=== PATIENT | male | born 1975 | race Caucasian/White ===

== ENCOUNTER → 2018-02-17 | Outpatient (CLI) | payer OTHER ==
--- NOTE | 2018-02-17 08:00 | US ---
EXAMINATION TYPE: US liver DATE OF EXAM: 02/17/2018 COMPARISON: NONE CLINICAL HISTORY: R74.8 ABN LEVELS OF OTHER SERUM ENZYMES. Elevated liver enzymes. EXAM MEASUREMENTS: Liver Length: 13.6 cm Gallbladder Wall: 0.2 cm CBD: 0.3 cm Right Kidney: 9.8 x 5.6 x 4.9 cm Severe midline bowel gas obscuring organs, technically difficult and somewhat limited study. Pancreas: Obscured by bowel gas Liver: limited visualization, portions visualized wnl Gallbladder: wnl Evidence for sonographic Worley's sign: No CBD: limited visualization, portions visualized wnl Right Kidney: No hydronephrosis or masses seen on images saved. Suboptimal study due to overlying bowel gas. Visualized portions of liver show no worrisome intrahepa tic mass or intrahepatic ductal dilatation. IMPRESSION: Suboptimal study, visualized portion of liver shows no worrisome intrahepatic mass or int rahepatic ductal dilatation.
== END | disposition home or self-care (01) ==
LOC: RADUSWWP 07:19
PROVIDERS: ATTEND Family Medicine
DX: R74.8 Abnormal levels of other serum enzymes (principal)
CPT/HCPCS: 76705

== ENCOUNTER → 2018-10-14 | Outpatient (CLI) | payer OTHER ==
--- NOTE | 2018-10-14 16:13 | CT ---
EXAMINATION TYPE: CT abdomen wo/w con DATE OF EXAM: 10/14/2018 COMPARISON: Liver ultrasound dated 02/17/2018 HISTORY: Right upper quadrant abdominal pain and abnormal liver enzyme labs. CT DLP: 1229 mGycm Automated exposure control for dose reduction was used. TECHNIQUE: Helical acquisition of images was performed from the lung bases through the top of iliac crest to include entire abdomen. CONTRAST: Performed with Oral Contrast and without and with IV Contrast, patient injected with 100ml mL of Isov ue M300. FINDINGS: LUNG BASES: No significant abnormality is appreciated. LIVER/GB: The liver slightly hypoattenuated on the noncontrast imaging, however attenuation does not meet criteria for hepatic steatosis and no evidence of hepatic steatosis in comparison to enhancement of the spleen is seen. Gallbladder is elongated without cholelithiasis. There is no focal hepatic ma ss or intrahepatic biliary ductal dilatation identified. There is a very small area of focal hypoatte nuation along the fissure for the falciform ligament on series 6 image 14 suggestive of focal fatty i nfiltration. PANCREAS: No significant abnormality is seen. SPLEEN: There are innumerable hypoattenuated splenic lesions throughout the entirety of the spleen th e largest measuring 2.5 cm not compatible with simple cysts or simple lymphangiomas or hemangiomas. T hese are seen on the portal venous phase only and do not persist on delayed imaging. No splenomegaly is present. ADRENALS: No significant abnormality is seen. KIDNEYS: Kidneys enhance and excrete symmetrically without hydronephrosis. BOWEL: No significant abnormality is seen. LYMPH NODES: No significant abnormality is seen. OSSEOUS STRUCTURES: Limbus vertebrae is incidentally seen, normal variant, of L4. Mild degenerative changes of the thoracic spine are noted.. FREE AIR: No free air is visualized. IMPRESSION: 1. NO HEPATIC ABNORMALITY TO CORRESPOND TO THE PATIENT'S ABNORMAL LIVER FUNCTION TESTS OTHER THAN SMA LL FOCUS OF FOCAL FATTY INFILTRATION. 2. INNUMERABLE HYPOATTENUATED SPLENIC LESIONS THAT CAN BE SEEN IN ATYPICAL INFECTIONS, GRANULOMATOUS DISEASE, METASTASIS, OR LYMPHOPROLIFERATIVE DISORDERS.
== END | disposition home or self-care (01) ==
LOC: RADCTMAIN 14:39
PROVIDERS: ATTEND Family Medicine
DX: D73.89 Other diseases of spleen (principal)
CPT/HCPCS: 74170; Q9967

== ENCOUNTER 2021-03-19 12:52 | Inpatient (IN) | payer OTHER ==
[2021-03-19] MEDS ORDERED: SODIUM CHLORIDE 0.9% 1,000 ML IV ONE (14:09)
[2021-03-19] MEDS ORDERED: SODIUM CHLORIDE 0.9% 500 ML 500 ML IV ONE (14:09)
[2021-03-19] MEDS ORDERED: DEXAMETHASONE SOD PHOSPHATE 10 MG/ML 1 ML VIAL IV STA (14:10)
[2021-03-19] MEDS: SODIUM CHLORIDE 0.9% 1,000 ML IV SCH (14:33)
--- NOTE | 2021-03-19 14:42 | ED ---
General Adult HPI - General Chief complaint: Shortness of Breath Stated complaint: covid+/increased SOB Time Seen by Provider: 03/19/21 14:04 Source: patient Mode of arrival: ambulatory Limitations: no limitations - History of Present Illness Initial comments: 45-year-old male presenting today for chief complaint of persistent shortness of breath. Patient states he was diagnosed with coma on 02/28/2021 he states that he continues to have shortness of breath he states has not changed or worsened he states it is just persistent ache and a longer tolerate it. Denies any leg swelling, hemoptysis he denies pain or deep inspiration he denies any chest pain. Patient denies nausea vomiting jaw or arm pain. He states that he has gotten over the fever nausea diarrhea aspect of the illness he states he still has a slight cough occasionally. He states the only thing that truly has remained has been the shortness of breath patient denies any abdominal pain. Patient on arrival appears tachypneic and is only saturating around 88-89% on RA with good wave form. - Related Data Home Medications Medication Instructions Recorded Confirmed Brimonidine Tartrate [Alphagan P 1 drops RIGHT EYE BID 03/19/21 03/19/21 0.15% Ophth Soln] Latanoprost [Xalatan 0.005%] 1 drop RIGHT EYE HS 03/19/21 03/19/21 Lisinopril-Hctz 20-12.5 mg 1 tab PO DAILY 03/19/21 03/19/21 [Zestoretic 20-12.5] Montelukast [Singulair] 10 mg PO DAILY 03/19/21 03/19/21 RX: Dorzolamide-Timol 2.23%/0.68% 1 drop RIGHT EYE BID 03/19/21 03/19/21 [Cosopt] Vortioxetine Hydrobromide 10 mg PO DAILY 03/19/21 03/19/21 [Trintellix] Allergies Allergy/AdvReac Type Severity Reaction Status Date / Time No Known Allergies Allergy Verified 03/19/21 15:49 Review of Systems ROS Statement: Those systems with pertinent positive or pertinent negative responses have been documented in the HPI. ROS Other: All systems not noted in ROS Statement are negative. Past Medical History Past Medical History: Hypertension History of Any Multi-Drug Resistant Organisms: None Reported Past Surgical History: Adenoidectomy, Tonsillectomy Past Psychological History: Depression Smoking Status: Never smoker Past Alcohol Use History: None Reported Past Drug Use History: None Reported General Exam - General Exam Comments Initial Comments: General: The patient is awake and alert, in no distress Eye: +3 mm pupils are equal, round and reactive to light, extra-ocular movements are intact. No nystagmus. There is normal conjunctiva bilaterally. No signs of icterus. Ears, nose, mouth and throat: There are moist mucous membranes and no oral lesions. Neck: The neck is supple, there is no tenderness or JVD. Cardiovascular: There is a regular rate and rhythm. No murmur, rub or gallop is appreciated. Respiratory: Respirations are non-labored, breath sounds are equal. No wheezes, stridor. Rales and some scattered rhonchi. Gastrointestinal: Soft, non-distended, non-tender abdomen without masses or organomegaly noted. There is no rebound or guarding present. Musculoskeletal: Normal ROM, no tenderness. Strength 5/5. Sensation intact. Radial pulses equal bilaterally 2+. Neurological: A&O x 3. CN II-XII intact grossly, There are no obvious motor or sensory deficits. Coordination appears grossly intact. Speech is normal. Skin: Skin is warm and dry and no rashes or lesions are noted. No calf pain or LE swelling Psychiatric: Cooperative, appropriate mood & affect, normal judgment. Limitations: no limitations Course Vital Signs 03/19/21 03/19/21 03/19/21 13:24 15:52 17:31 Temperature 98.0 F 98.3 F Pulse Rate 130 H 99 103 H Respiratory 22 20 18 Rate Blood Pressure 115/80 121/77 121/77 O2 Sat by Pulse 91 L 100 95 Oximetry Medical Decision Making - Medical Decision Making Labs stable. CT probable subsegmental PE. Initiated on heparin. Covid PNA. Patient hypoxic she was tachycardic upon arrival. Troponin negative. Pt will be admitted for monitoring, anticoagulation, supplemental oxygen. steroids initiated in the ER. Dr Valera agreeable to care plan. critical care time of 30 minutes was spent with patient, re-evaluation, consultations, interpretations/diagnosis. Ventricular rate 126 bpm, RI interval 128 ms, QR nondenominational 80 ms, QT/QTC 328/475 ms. Sinus tachycardia with a right axis. No ST elevation or depression as well as significant artifact - Lab Data Result diagrams: 03/19/21 14:29 03/19/21 14:29 Lab Results 03/19/21 03/19/21 03/19/21 Range/Units 14:29 14:29 14:29 WBC 7.1 (3.8-10.6) k/uL RBC 4.87 (4.30-5.90) m/uL Hgb 14.9 (13.0-17.5) gm/dL Hct 44.0 (39.0-53.0) % MCV 90.5 (80.0-100.0) fL MCH 30.7 (25.0-35.0) pg MCHC 33.9 (31.0-37.0) g/dL RDW 13.9 (11.5-15.5) % Plt Count 406 (150-450) k/uL MPV 6.9 Neutrophils % 83 % Lymphocytes % 9 % Monocytes % 5 % Eosinophils % 1 % Basophils % 1 % Neutrophils # 5.9 (1.3-7.7) k/uL Lymphocytes # 0.6 L (1.0-4.8) k/uL Monocytes # 0.4 (0-1.0) k/uL Eosinophils # 0.1 (0-0.7) k/uL Basophils # 0.0 (0-0.2) k/uL PT 11.5 (9.0-12.0) sec INR 1.1 (<1.2) APTT 23.8 (22.0-30.0) sec D-Dimer 1.61 H (<0.60) mg/L FEU Sodium 142 (137-145) mmol/L Potassium 3.9 (3.5-5.1) mmol/L Chloride 110 H (98-107) mmol/L Carbon Dioxide 22 (22-30) mmol/L Anion Gap 10 mmol/L BUN 22 H (9-20) mg/dL Creatinine 0.93 (0.66-1.25) mg/dL Est GFR (CKD-EPI)AfAm >90 (>60 ml/min/1.73 sqM) Est GFR (CKD-EPI)NonAf >90 (>60 ml/min/1.73 sqM) Glucose 108 H (74-99) mg/dL Plasma Lactic Acid Roberth (0.7-2.0) mmol/L Calcium 9.0 (8.4-10.2) mg/dL Magnesium 2.2 (1.6-2.3) mg/dL Total Bilirubin 0.5 (0.2-1.3) mg/dL AST 52 (17-59) U/L ALT 117 H (4-49) U/L Alkaline Phosphatase 91 (38-126) U/L Lactate Dehydrogenase 802 H (313-618) U/L Troponin I (0.000-0.034) ng/mL C-Reactive Protein 1.1 H (<1.0) mg/dL NT-Pro-B Natriuret Pep pg/mL Total Protein 6.9 (6.3-8.2) g/dL Albumin 3.5 (3.5-5.0) g/dL 03/19/21 03/19/21 03/19/21 Range/Units 14:29 14:29 14:29 WBC (3.8-10.6) k/uL RBC (4.30-5.90) m/uL Hgb (13.0-17.5) gm/dL Hct (39.0-53.0) % MCV (80.0-100.0) fL MCH (25.0-35.0) pg MCHC (31.0-37.0) g/dL RDW (11.5-15.5) % Plt Count (150-450) k/uL MPV Neutrophils % % Lymphocytes % % Monocytes % % Eosinophils % % Basophils % % Neutrophils # (1.3-7.7) k/uL Lymphocytes # (1.0-4.8) k/uL Monocytes # (0-1.0) k/uL Eosinophils # (0-0.7) k/uL Basophils # (0-0.2) k/uL PT (9.0-12.0) sec INR (<1.2) APTT (22.0-30.0) sec D-Dimer (<0.60) mg/L FEU Sodium (137-145) mmol/L Potassium (3.5-5.1) mmol/L Chloride (98-107) mmol/L Carbon Dioxide (22-30) mmol/L Anion Gap mmol/L BUN (9-20) mg/dL Creatinine (0.66-1.25) mg/dL Est GFR (CKD-EPI)AfAm (>60 ml/min/1.73 sqM) Est GFR (CKD-EPI)NonAf (>60 ml/min/1.73 sqM) Glucose (74-99) mg/dL Plasma Lactic Acid Roberth 1.1 (0.7-2.0) mmol/L Calcium (8.4-10.2) mg/dL Magnesium (1.6-2.3) mg/dL Total Bilirubin (0.2-1.3) mg/dL AST (17-59) U/L ALT (4-49) U/L Alkaline Phosphatase (38-126) U/L Lactate Dehydrogenase (313-618) U/L Troponin I <0.012 (0.000-0.034) ng/mL C-Reactive Protein (<1.0) mg/dL NT-Pro-B Natriuret Pep 45 pg/mL Total Protein (6.3-8.2) g/dL Albumin (3.5-5.0) g/dL Disposition Clinical Impression: Pulmonary embolism, Pneumonia due to COVID-19 virus, Dyspnea, Hypoxia Disposition: ADMITTED IP TO THIS [facility] Condition: Stable Is patient prescribed a controlled substance at d/c from ED?: No Time of Disposition: 16:35 Decision to Admit Reason: Admit from EC Decision Date: 03/19/21 Decision Time: 16:35
[2021-03-19 14:53] LABS: Basophils % (A) 1 %; Eosinophils # (A) 0.1 k/uL (0-0.7); Eosinophils % (A) 1 %; HGB 14.9 gm/dL (13.0-17.5); Lymphocytes # (A) 0.6 k/uL (1.0-4.8); Lymphocytes % (A) 9 %; MCH 30.7 pg (25.0-35.0); MCHC 33.9 g/dL (31.0-37.0); MCV 90.5 fL (80.0-100.0); Mean Platelet Volume 6.9; Monocytes # (A) 0.4 k/uL (0-1.0); Monocytes % (A) 5 %; Neutrophils # (A) 5.9 k/uL (1.3-7.7); Neutrophils % (A) 83 %; Platelet Count 406 k/uL (150-450); RBC 4.87 m/uL (4.30-5.90); RDW 13.9 % (11.5-15.5); WBC 7.1 k/uL (3.8-10.6)
--- NOTE | 2021-03-19 14:57 | XR ---
EXAMINATION TYPE: XR chest 1V portable DATE OF EXAM: 03/19/2021 COMPARISON: NONE HISTORY: Shortness of breath. COVID positive. TECHNIQUE: Single AP portable frontal upright view of the chest is obtained. FINDINGS: There is low lung volumes with increased multifocal and confluent reticular opacities in t he mid to lower lungs left greater than right. The cardiac silhouette size is upper limits of normal . The osseous structures are intact. EKG leads. IMPRESSION: Low lung volumes with left greater than right multifocal and confluent increased reticul ar opacities bilaterally consistent with history of covid-19 infection..
[2021-03-19 15:03] LABS: ALT 117 U/L (4-49); AST 52 U/L (17-59); African American GFR (CKD) >90 (>60 ml/min/1.73 sqM); Albumin 3.5 g/dL (3.5-5.0); Alkaline Phosphatase 91 U/L (38-126); Anion Gap 10 mmol/L; Blood Urea Nitrogen 22 mg/dL (9-20); C Reactive Protein 1.1 mg/dL (<1.0); Carbon Dioxide 22 mmol/L (22-30); Chloride 110 mmol/L (98-107); Glucose 108 mg/dL (74-99); LDH 802 U/L (313-618); Magnesium 2.2 mg/dL (1.6-2.3); Non-African American GFR(CKD) >90 (>60 ml/min/1.73 sqM); Potassium 3.9 mmol/L (3.5-5.1); Sodium 142 mmol/L (137-145); Total Bilirubin 0.5 mg/dL (0.2-1.3); Total Protein 6.9 g/dL (6.3-8.2)
[2021-03-19 15:04] LABS: INR 1.1 (<1.2); Partial Thromboplastin Time 23.8 sec (22.0-30.0); Prothrombin Time 11.5 sec (9.0-12.0)
[2021-03-19 15:12] LABS: D-Dimer 1.61 mg/L FEU (<0.60)
--- NOTE | 2021-03-19 16:17 | CT ---
EXAMINATION TYPE: CT chest angio for PE DATE OF EXAM: 03/19/2021 COMPARISON: Chest x-ray earlier today. HISTORY: dyspnea, covid CT DLP: 408.2 mGycm Automated exposure control for dose reduction was used. CONTRAST: CT Chest for pulmonary embolism performed with with IV Contrast, patient injected with 100 mL of Isov ue 370. FINDINGS: LUNGS: Corresponding to x-ray there is low lung volumes with multifocal and confluent areas of ground glass opacity seen bilaterally more prominent in the mid to lower lungs. Patient unable to hold breat h making evaluation suboptimal. Multifocal areas of reticulation bilaterally are present greatest in the lower lungs. No pleural effusion or pneumothorax seen bilaterally. MEDIASTINUM: There is satisfactory enhancement of the aorta without aneurysm or dissection. Bovine ty pe arch is seen which is normal variant. There is also satisfactory enhancement of the pulmonary stuart ry and its branches without CT evidence for clinically significant central acute pulmonary embolism. possible partially occlusive subsegmental embolism right lower lobe axial image 76 in smaller branch vessel. There are prominent right hilar lymph node. No pericardial effusion is seen. Heart size n ormal. No suspicious right ventricular dilatation. OTHER: Small degree of flame shaped subareolar gynecomastia. IMPRESSION: 1. Suboptimal study, no central or clinically significant pulmonary embolism. Suggestion of partial o cclusive small subsegmental acute embolism right lower lobe. 2. Low lung volumes and Bilateral multifocal and confluent groundglass and reticular opacities greate st in the lower lungs consistent with covid-19 infection.
[2021-03-19] MEDS ORDERED: NALOXONE 0.4 MG/ML 1 ML VIAL IV PRN (16:32)
[2021-03-19] MEDS ORDERED: ACETAMINOPHEN TAB 325 MG TAB PO PRN (16:32)
[2021-03-19] MEDS ORDERED: HEPARIN SODIUM 1,000 UN/ML (10ML VL) IV ONE (16:35)
[2021-03-19] MEDS ORDERED: HEPARIN SODIUM 1,000 UN/ML (10ML VL) IV PRN (16:35)
[2021-03-19] MEDS: HEPARIN SOD,PORK IN 0.45% NACL 25,000 UNIT in 0.45% NACL 1 250ML.BAG IV SCH (17:41)
[2021-03-19 19:39] LABS: Ferritin 675.8 ng/mL (22.0-322.0)
[2021-03-19] MEDS: ALBUTEROL HFA INHALER INHALATION SCH (20:41)
[2021-03-20] MEDS: SODIUM CHLORIDE 0.9% 1,000 ML IV SCH (05:04)
[2021-03-20] MEDS: ALBUTEROL HFA INHALER INHALATION SCH ×4 (07:26→20:38)
[2021-03-20] MEDS: HEPARIN SOD,PORK IN 0.45% NACL 25,000 UNIT in 0.45% NACL 1 250ML.BAG IV SCH (08:10)
[2021-03-20] MEDS: LISINOPRIL-HCTZ 20-12.5 MG 1 EACH TAB PO SCH (09:31)
[2021-03-20] MEDS: VORTIOXETINE HYDROBROMIDE 10 MG TABLET PO SCH (09:32)
[2021-03-20] MEDS: MONTELUKAST 10 MG TAB PO SCH (09:33)
[2021-03-20] MEDS: DORZOLAMIDE-TIMOLOL 2.23%/0.68 10ML BTL RIGHT EYE SCH ×2 (09:33→20:48)
[2021-03-20] MEDS: BRIMONIDINE TARTRATE 0.2% DROPS 5 ML BTL RIGHT EYE SCH ×2 (09:33→20:48)
[2021-03-20 10:51] LABS: Basophils # (A) 0.01 X 10*3/uL (0.00-0.10); Basophils % (A) 0.2 %; Eosinophils # (A) 0.02 X 10*3/uL (0.04-0.35); Eosinophils % (A) 0.3 %; HCT 37.1 % (39.6-50.0); HGB 11.5 g/dL (13.0-17.0); Lymphocytes # (A) 0.79 X 10*3/uL (0.90-5.00); Lymphocytes % (A) 13.2 %; MCH 29.6 pg (27.0-32.0); MCV 95.4 fL (80.0-97.0); Mean Platelet Volume 10.2 fL (9.5-12.2); Monocytes # (A) 0.29 X 10*3/uL (0.20-1.00); Monocytes % (A) 4.8 %; Neutrophils # (A) 4.86 X 10*3/uL (1.80-7.70); Neutrophils % (A) 81.2 %; Platelet Count 300 X 10*3/uL (140-440); RBC 3.89 X 10*6/uL (4.40-5.60); RDW 14.6 % (11.5-14.5); WBC 5.99 X 10*3/uL (4.50-10.00)
[2021-03-20] MEDS: DEXAMETHASONE SOD PHOSPHATE 10 MG/ML 1 ML VIAL IV SCH (13:56)
[2021-03-20] MEDS: ZINC SULFATE 220 MG CAP PO SCH (13:57)
[2021-03-20] MEDS: FAMOTIDINE 20 MG TAB PO SCH ×2 (13:57→20:48)
[2021-03-20] MEDS: ASCORBIC ACID 500 MG TAB PO SCH (13:57)
[2021-03-20] MEDS: APIXABAN 5 MG TAB PO SCH ×2 (13:57→20:48)
[2021-03-20] MEDS: CHOLECALCIFEROL 25 MCG (1000 IU) TABLET PO SCH (13:57)
[2021-03-20 15:01] LABS: C Reactive Protein 0.9 mg/dL (<1.0)
--- NOTE | 2021-03-20 15:23 | P.CNPUL ---
History of Present Illness Consult date: 03/20/21 Requesting physician: Warren Valera Reason for consult: dyspnea, hypoxemia, pneumonia, abnormal CXR/CT Chief complaint: Shortness of breath History of present illness: This is a 45-year-old white male patient who was diagnosed with COVID-19 on 02/28/2021 when he was seen at [facility] emergency department. We don't have the records from that visit, but patient states he was just given IV fluids in the emergency department, and an inhaler, and was discharged home, he does not think there was pneumonia on the chest x-ray found on that visit. Patient presented to the emergency department on 03/19/2021 with persistent shortness of breath, which she states has not changed over worsened however has not improved. He denied any chest pain or hemoptysis, no leg s welling, no calf tenderness. He denied any nausea or vomiting, he did have diarrhea, he does have a slight cough occasionally. Not usually oxygen dependent at baseline, in the emergency department she was tachypneic and saturating at 88-89% on room air. Chest x-ray showed low lung volumes with left greater than right multifocal and confluent increased reticular opacities bilaterally consistent with history of COVID-19 pneumonia. His labs show lymphopenia, normal white count of 7.1, hemoglobin was 14.1, his d-dimer was elevated at 1.61, his electrolytes and renal profile were unremarkable, plasma lactic acid was 1.1, ferritin level was 675, ALT was 117, LDH was 802, troponin was less than 0.012, CRP was 1.1, pro calcitonin level was negative at 0.12, CTA chest was completed and this was a suboptimal study but no central or clinically significant pulmonary embolism was noted, there was a suggestion of partially occlusive small subsegmental acute embolism in the right lower lobe. There were corresponding to x-ray low lung volumes with multifocal and confluent areas of groundglass opacities. Patient was started on heparin infusion, and Decadron. Review of Systems All systems: negative Constitutional: Denies chills, Denies fever Eyes: denies blurred vision, denies pain Ears, nose, mouth and throat: Denies headache, Denies sore throat Cardiovascular: Denies chest pain, Denies shortness of breath Respiratory: Reports dyspnea, Denies cough Gastrointestinal: Denies abdominal pain, Denies diarrhea, Denies nausea, Denies vomiting Musculoskeletal: Denies myalgias Integumentary: Denies pruritus, Denies rash Neurological: Denies numbness, Denies weakness Psychiatric: Denies anxiety, Denies depression Endocrine: Denies fatigue, Denies weight change Past Medical History Past Medical History: Hypertension History of Any Multi-Drug Resistant Organisms: None Reported Past Surgical History: Adenoidectomy, Tonsillectomy Past Psychological History: Depression Smoking Status: Never smoker Past Alcohol Use History: None Reported Past Drug Use History: None Reported Medications and Allergies Home Medications Medication Instructions Recorded Confirmed Type Brimonidine Tartrate [Alphagan P 1 drops RIGHT EYE BID 03/19/21 03/19/21 History 0.15% Ophth Soln] Dorzolamide-Timol 2.23%/0.68% 1 drop RIGHT EYE BID 03/19/21 03/19/21 History [Cosopt] Latanoprost [Xalatan 0.005%] 1 drop RIGHT EYE HS 03/19/21 03/19/21 History Lisinopril-Hctz 20-12.5 mg 1 tab PO DAILY 03/19/21 03/19/21 History [Zestoretic 20-12.5] Montelukast [Singulair] 10 mg PO DAILY 03/19/21 03/19/21 History Vortioxetine Hydrobromide 10 mg PO DAILY 03/19/21 03/19/21 History [Trintellix] Apixaban [Eliquis Starter Pack 0 mg PO DIRECTED 30 Days #1 pack 03/20/21 Rx (for VTE)] Allergies Allergy/AdvReac Type Severity Reaction Status Date / Time No Known Allergies Allergy Verified 03/19/21 15:49 Physical Exam Vitals: Vital Signs Temp Pulse Pulse Resp BP BP Pulse Ox 03/20/21 14:09 97.4 F L 81 18 112/75 91 L 03/20/21 08:00 98.2 F 85 16 105/72 95 03/20/21 06:39 91 L 03/20/21 05:49 98.6 F 88 114/74 89 L 03/20/21 01:33 97.8 F 82 19 118/82 91 L 03/19/21 20:57 97.9 F 95 19 120/85 95 03/19/21 20:00 95 20 03/19/21 17:31 98.3 F 103 H 18 121/77 95 03/19/21 15:52 99 20 121/77 100 Intake and Output 03/20/21 03/20/21 03/20/21 06:59 14:59 22:59 Intake Total 122.195 245.587 Balance 122.195 245.587 Intake: Intake, IV Titration 122.195 45.587 Amount Heparin Sod,Pork in 0.45% 122.195 45.587 NaCl 25,000 unit In 0.45 % NaCl 1 250ml.bag @ 18 UNITS/KG/HR 16.329 mls/hr IV .[id number] ORTIZ Rx#: [id number] Oral 200 Other: # Voids 4 2 GENERAL EXAM: Alert, very pleasant, 45-year-old white male, on 4 L of oxygen and pulse ox of 91%, comfortable in no apparent distress. HEAD: Normocephalic/atraumatic. EYES: Normal reaction of pupils, equal size. Conjunctiva pink, sclera white. NOSE: Clear with pink turbinates. THROAT: No erythema or exudates. NECK: No masses, no JVD, no thyroid enlargement, no adenopathy. CHEST: No chest wall deformity. Symmetrical expansion. LUNGS: Equal air entry with diffuse bibasilar crackles CVS: Regular rate and rhythm, normal S1 and S2, no gallops, no murmurs, no rubs ABDOMEN: Soft, nontender. No hepatosplenomegaly, normal bowel sounds, no guarding or rigidity. EXTREMITIES: No clubbing, no edema, no cyanosis, 2+ pulses and upper and lower extremities. MUSCULOSKELETAL: Muscle strength and tone normal. SPINE: No scoliosis or deformity SKIN: No rashes CENTRAL NERVOUS SYSTEM: Alert and oriented -3. No focal deficits, tone is normal in all 4 extremities. PSYCHIATRIC: Alert and oriented -3. Appropriate affect. Intact judgment and insight. Results - Laboratory Findings CBC and BMP: 03/20/21 06:39 03/19/21 14:29 PT/INR, D-dimer PT 11.5 sec (9.0-12.0) 03/19/21 14:29 INR 1.1 (<1.2) 03/19/21 14:29 D-Dimer 1.51 mg/L FEU (<0.60) H 03/20/21 14:00 Abnormal lab findings: Abnormal Labs 03/19/21 03/19/21 03/19/21 14:29 14:29 14:29 RBC Hgb Hct MCHC RDW Lymphocytes # 0.6 L Eosinophils # APTT D-Dimer 1.61 H Chloride 110 H BUN 22 H Glucose 108 H Ferritin 675.8 H ALT 117 H Lactate Dehydrogenase 802 H C-Reactive Protein 1.1 H Procalcitonin 03/19/21 03/20/21 03/20/21 14:29 00:23 06:39 RBC 3.89 L Hgb 11.5 L Hct 37.1 L MCHC 31.0 L RDW 14.6 H Lymphocytes # 0.79 L Eosinophils # 0.02 L APTT 117.2 H* D-Dimer Chloride BUN Glucose Ferritin ALT Lactate Dehydrogenase C-Reactive Protein Procalcitonin 0.12 H 03/20/21 03/20/21 06:39 14:00 RBC Hgb Hct MCHC RDW Lymphocytes # Eosinophils # APTT 36.4 H D-Dimer 1.51 H Chloride BUN Glucose Ferritin ALT Lactate Dehydrogenase C-Reactive Protein Procalcitonin - Diagnostic Findings Chest x-ray: report reviewed, image reviewed CT scan - chest: report reviewed, image reviewed Assessment and Plan Plan: Assessment: #1. Acute hypoxic respiratory failure related to acute COVID-19 pneumonia, first diagnosed on 02/28/2021 at [facility]. Patient is outside the window for Remdesivir #2. Small subsegmental right lower lobe pulmonary embolism #3. History of depression #4. Possible history of chronic bronchial asthma, mild intermittent #5. Lifetime nonsmoker #6. History of hypertension Plan: We'll start the patient on Eliquis 10 mg twice a day Discontinue heparin infusion Continue Decadron Patient is outside the window for Remdesivir We'll continue to monitor for worsening dyspnea or hypoxia I performed a history & physical examination of the patient and discussed their management with my nurse practitioner, Jaz Saeed. I reviewed the nurse practitioner's note and agree with the documented findings and plan of care. Lung sounds are positive for diffuse crackles. The findings and the impression was discussed with the patient. I attest to the documentation by the nurse practitioner. Time with Patient: Greater than 30
[2021-03-20] MEDS: LATANOPROST 0.005% OPHTH DROPS 2.5 ML BTL RIGHT EYE SCH (20:47)
--- NOTE | 2021-03-20 21:14 | P.HPIM ---
History of Present Illness H&P Date: 03/20/21 Chief Complaint: Not feeling well History of presenting complaint: This is a pleasant 45-year-old patient of Dr. Fajardo. Chronic stable medical conditions include hypertension, ALLERGIES, depression. Patient was diagnosed with COVID 19 on February 28. 2 days prior to this patient with having different symptoms. Currently patient presented to the ER with increasing shortness of breath diarrhea. No body ache or headache. Decreased appetite. Patient had some loss of smell and taste that has been coming back. Currently no fever and chills. Initial pulse ox on presentation was 91% on room air. Patient is placed on oxygen. Given IV dexamethasone. Review of systems: GEN.: Tired EYES: None HEENT: None NECK: None RESPIRATORY: Shortness of breath CARDIOVASCULAR: None GASTROINTESTINAL: Intermittent diarrhea GENITOURINARY: None MUSCULOSKELETAL: None LYMPHATICS: None HEMATOLOGICAL: None PSYCHIATRY: None NEUROLOGICAL: None Past medical history to include: Hypertension, ALLERGIES, depression Social history: Patient is in his grandfather. Normally does [employer]. Does not smoke or drink alcohol Family history: Reviewed, noncontributory to presentation Physical examination: VITAL SIGNS: 98, 1:30, 22, 115/80, 91% on room air GENERAL: BMI 30.4, laying in bed, tired with nasal cannula. EYES: Pupils equal. Conjunctiva normal. HEENT: External appearance of nose and ears normal, oral cavity grossly normal. Nasal cannula NECK: JVD not raised; masses not palpable. HEART: First and second heart sounds are normal; no edema. LUNGS: Respiratory rate increased, basal crackles. ABDOMEN: Soft, nontender, liver spleen not palpable, no masses palpable. PSYCH: Alert and oriented x3; mood and affect tired appearingl. NEUROLOGICAL: Cranial nerves grossly intact; no facial asymmetry, power and sensation grossly intact. LYMPHATICS: No lymph nodes palpable in the axilla and neck INVESTIGATIONS, reviewed in the clinical context: WBC 5.9 hemoglobin 11.5 platelets 300 lymphocyte 0.7 d-dimer 1.61 Potassium 3.9 creatinine 0.93 LDH 802 CRP 1.1 pro-calcitonin 0.12 EKG tracing personally reviewed by me-normal sinus rhythm, heart rate 126 Chest CTA: Partial occlusive small subsegmental acute embolism right lower lobe Chest x-ray film personally reviewed by me-bilateral infiltrates Assessment and plan: -Bilateral COVID 19 pneumonia. Patient was diagnosed on February 28. Symptoms is started well before that. IV dexamethasone, vitamin C, vitamin D, Pepcid, zinc. Subcu Lovenox -Related hypoxia with a pulse ox being 91% on room air Supplement 2 L of nasal cannula -Acute gastroenteritis secondary to COVID 19 Symptomatic treatment -Essential hypertension Continue Zestoretic -Chronic ALLERGIES Continue with Singulair -Depression otherwise specified Continue with Trintellix Care was discussed with the patient. Encouraged to sit up in a chair. Use incentive spirometry. Medications as above. Pulmonary consulted. Past Medical History Past Medical History: Hypertension History of Any Multi-Drug Resistant Organisms: None Reported Past Surgical History: Adenoidectomy, Tonsillectomy Past Psychological History: Depression Smoking Status: Never smoker Past Alcohol Use History: None Reported Past Drug Use History: None Reported Medications and Allergies Home Medications Medication Instructions Recorded Confirmed Type Brimonidine Tartrate [Alphagan P 1 drops RIGHT EYE BID 03/19/21 03/19/21 History 0.15% Ophth Soln] Dorzolamide-Timol 2.23%/0.68% 1 drop RIGHT EYE BID 03/19/21 03/19/21 History [Cosopt] Latanoprost [Xalatan 0.005%] 1 drop RIGHT EYE HS 03/19/21 03/19/21 History Lisinopril-Hctz 20-12.5 mg 1 tab PO DAILY 03/19/21 03/19/21 History [Zestoretic 20-12.5] Montelukast [Singulair] 10 mg PO DAILY 03/19/21 03/19/21 History Vortioxetine Hydrobromide 10 mg PO DAILY 03/19/21 03/19/21 History [Trintellix] Apixaban [Eliquis Starter Pack 0 mg PO DIRECTED 30 Days #1 pack 03/20/21 Rx (for VTE)] Allergies Allergy/AdvReac Type Severity Reaction Status Date / Time No Known Allergies Allergy Verified 03/19/21 15:49 Physical Exam Vitals: Vital Signs Temp Pulse Pulse Resp BP BP Pulse Ox 03/20/21 06:39 91 L 03/20/21 05:49 98.6 F 88 114/74 89 L 03/20/21 01:33 97.8 F 82 19 118/82 91 L 03/19/21 20:57 97.9 F 95 19 120/85 95 03/19/21 20:00 95 20 03/19/21 17:31 98.3 F 103 H 18 121/77 95 03/19/21 15:52 99 20 121/77 100 03/19/21 13:24 98.0 F 130 H 22 115/80 91 L Intake and Output 03/19/21 03/20/21 03/20/21 22:59 06:59 14:59 Intake Total 122.195 45.587 Balance 122.195 45.587 Intake: Intake, IV Titration 122.195 45.587 Amount Heparin Sod,Pork in 0.45% 122.195 45.587 NaCl 25,000 unit In 0.45 % NaCl 1 250ml.bag @ 18 UNITS/KG/HR 16.329 mls/hr IV .[id number] [facility] Rx#: [id number] Other: # Voids 4 Weight 90.718 kg Results CBC & Chem 7: 03/20/21 06:39 03/19/21 14:29 Labs: Abnormal Lab Results - Last 24 Hours (Table) 03/19/21 03/19/21 03/19/21 Range/Units 14:29 14:29 14:29 Lymphocytes # 0.6 L (1.0-4.8) k/uL APTT (22.0-30.0) sec D-Dimer 1.61 H (<0.60) mg/L FEU Chloride 110 H (98-107) mmol/L BUN 22 H (9-20) mg/dL Glucose 108 H (74-99) mg/dL Ferritin 675.8 H (22.0-322.0) ng/mL ALT 117 H (4-49) U/L Lactate Dehydrogenase 802 H (313-618) U/L C-Reactive Protein 1.1 H (<1.0) mg/dL Procalcitonin (0.02-0.09) ng/mL 03/19/21 03/20/21 03/20/21 Range/Units 14:29 00:23 06:39 Lymphocytes # (1.0-4.8) k/uL APTT 117.2 H* 36.4 H (22.0-30.0) sec D-Dimer (<0.60) mg/L FEU Chloride (98-107) mmol/L BUN (9-20) mg/dL Glucose (74-99) mg/dL Ferritin (22.0-322.0) ng/mL ALT (4-49) U/L Lactate Dehydrogenase (313-618) U/L C-Reactive Protein (<1.0) mg/dL Procalcitonin 0.12 H (0.02-0.09) ng/mL
[2021-03-21] MEDS: ALBUTEROL HFA INHALER INHALATION SCH ×4 (07:25→20:45)
[2021-03-21] MEDS: MONTELUKAST 10 MG TAB PO SCH (08:38)
[2021-03-21] MEDS: CHOLECALCIFEROL 25 MCG (1000 IU) TABLET PO SCH (08:38)
[2021-03-21] MEDS: APIXABAN 5 MG TAB PO SCH ×2 (08:38→21:18)
[2021-03-21] MEDS: ASCORBIC ACID 500 MG TAB PO SCH (08:38)
[2021-03-21] MEDS: FAMOTIDINE 20 MG TAB PO SCH ×2 (08:38→21:18)
[2021-03-21] MEDS: ZINC SULFATE 220 MG CAP PO SCH (08:38)
[2021-03-21] MEDS: DEXAMETHASONE SOD PHOSPHATE 10 MG/ML 1 ML VIAL IV SCH (08:39)
[2021-03-21] MEDS: VORTIOXETINE HYDROBROMIDE 10 MG TABLET PO SCH (08:39)
[2021-03-21] MEDS: LISINOPRIL-HCTZ 20-12.5 MG 1 EACH TAB PO SCH (08:39)
[2021-03-21] MEDS: BRIMONIDINE TARTRATE 0.2% DROPS 5 ML BTL RIGHT EYE SCH ×2 (08:40→21:17)
[2021-03-21] MEDS: DORZOLAMIDE-TIMOLOL 2.23%/0.68 10ML BTL RIGHT EYE SCH ×2 (08:40→21:17)
[2021-03-21] MEDS: PSYLLIUM HUSK 100% 6 GM PACKET PO SCH ×2 (12:01→21:18)
[2021-03-21] MEDS: BENZONATATE 100 MG CAP PO SCH ×3 (12:21→21:22)
--- NOTE | 2021-03-21 13:59 | P.PN ---
Subjective Progress Note Date: 03/21/21 Principal diagnosis: COVID-19 pneumonia, pulmonary embolism This is a 45-year-old white male patient who was diagnosed with COVID-19 on 02/28/2021 when he was seen at [facility] emergency department. We don't have the records from that visit, but patient states he was just given IV fluids in the emergency department, and an inhaler, and was discharged home, he does not think there was pneumonia on the chest x-ray found on that visit. Patient presented to the emergency department on 03/19/2021 with persistent shortness of breath, which she states has not changed over worsened however has not improved. He denied any chest pain or hemoptysis, no leg swelling, no calf tenderness. He denied any nausea or vomiting, he did have diarrhea, he does have a slight cough occasionally. Not usually oxygen dependent at baseline, in the emergency department she was tachypneic and saturating at 88-89% on room air. Chest x-ray showed low lung volumes with left greater than right multifocal and confluent increased reticular opacities bilaterally consistent with history of COVID-19 pneumonia. His labs show lymphopenia, normal white count of 7.1, hemoglobin was 14.1, his d-dimer was elevated at 1.61, his electrolytes and renal profile were unremarkable, plasma lactic acid was 1.1, ferritin level was 675, ALT was 117, LDH was 802, troponin was less than 0.012, CRP was 1.1, pro calcitonin level was negative at 0.12, CTA chest was completed and this was a suboptimal study but no central or clinically significant pulmonary embolism was noted, there was a suggestion of partially occlusive small subsegmental acute embolism in the right lower lobe. There were corresponding to x-ray low lung volumes with multifocal and confluent areas of groundglass opacities. Patient was started on heparin infusion, and Decadron. On 03/21/2021 patient seen in follow-up on medical surgical floor, he looks much more comfortable today, breathing comfortably, in no distress, he remains on 5 L of supplemental oxygen his pulse ox is around 90%, he remains on IV Decadron, we started him on oral anticoagulation and form of Eliquis yesterday, heparin drip has been discontinued, no worsening dyspnea, no worsening hypoxia no chest pain or hemoptysis. Vital signs are stable, blood pressure stable, patient is afebrile. No acute events overnight Objective - Vital Signs Vital signs: Vital Signs Temp 97.8 F 03/21/21 10:59 Pulse 80 03/21/21 10:59 Resp 20 03/21/21 10:59 BP 125/85 03/21/21 10:59 Pulse Ox 90 L 03/21/21 10:59 Intake & Output 03/20/21 03/21/21 03/21/21 18:59 06:59 18:59 Intake Total 245.587 500 Balance 245.587 500 Intake: Intake, IV Titration 45.587 Amount Heparin Sod,Pork in 0.45% 45.587 NaCl 25,000 unit In 0.45 % NaCl 1 250ml.bag @ 18 UNITS/KG/HR 16.329 mls/hr IV .[id number] Rx#: [id number] Oral 200 500 Other: # Voids 2 5 # Bowel Movements 3 - Exam GENERAL EXAM: Alert, very pleasant, 45-year-old white male, on 5 L of oxygen and pulse ox of 91%, comfortable in no apparent distress. HEAD: Normocephalic/atraumatic. EYES: Normal reaction of pupils, equal size. Conjunctiva pink, sclera white. NOSE: Clear with pink turbinates. THROAT: No erythema or exudates. NECK: No masses, no JVD, no thyroid enlargement, no adenopathy. CHEST: No chest wall deformity. Symmetrical expansion. LUNGS: Equal air entry with diffuse bibasilar crackles CVS: Regular rate and rhythm, normal S1 and S2, no gallops, no murmurs, no rubs ABDOMEN: Soft, nontender. No hepatosplenomegaly, normal bowel sounds, no guarding or rigidity. EXTREMITIES: No clubbing, no edema, no cyanosis, 2+ pulses and upper and lower extremities. MUSCULOSKELETAL: Muscle strength and tone normal. SPINE: No scoliosis or deformity SKIN: No rashes CENTRAL NERVOUS SYSTEM: Alert and oriented -3. No focal deficits, tone is normal in all 4 extremities. PSYCHIATRIC: Alert and oriented -3. Appropriate affect. Intact judgment and insight. - Labs CBC & Chem 7: 03/20/21 06:39 03/19/21 14:29 Labs: Abnormal Lab Results - Last 24 Hours (Table) 03/20/21 Range/Units 14:00 D-Dimer 1.51 H (<0.60) mg/L FEU Microbiology - Last 24 Hours (Table) 03/19/21 14:29 Blood Culture - Preliminary Blood No Growth after 24 hours 03/19/21 14:29 Blood Culture - Preliminary Blood No Growth after 24 hours Assessment and Plan Plan: Assessment: #1. Acute hypoxic respiratory failure related to acute COVID-19 pneumonia, first diagnosed on 02/28/2021 at [facility]. Patient is outside the window for Remdesivir #2. Small subsegmental right lower lobe pulmonary embolism #3. History of depression #4. Possible history of chronic bronchial asthma, mild intermittent #5. Lifetime nonsmoker #6. History of hypertension Plan: Continue Eliquis Continue Decadron Continue multivitamins, Monitor for worsening hypoxia or dyspnea If no worsening and if patient remains stable he may be considered for discharge home next 24-48 hours possibly on supplemental oxygen I performed a history & physical examination of the patient and discussed their management with my nurse practitioner, Jaz Saeed. I reviewed the nurse practitioner's note and agree with the documented findings and plan of care. Lung sounds are positive for diffuse crackles. The findings and the impression was discussed with the patient. I attest to the documentation by the nurse practitioner. Time with Patient: Less than 30
--- NOTE | 2021-03-21 19:56 | P.PN ---
Progress Note - Text Progress Note Date: 03/21/21 Chief Complaint: Not feeling well History of presenting complaint: This is a pleasant 45-year-old patient of Dr. Fajardo. Chronic stable medical conditions include hypertension, ALLERGIES, depression. Patient was diagnosed with COVID 19 on February 28. 2 days prior to this patient with having different symptoms. Currently patient presented to the ER with increasing shortness of breath diarrhea. No body ache or headache. Decreased appetite. Patient had some loss of smell and taste that has been coming back. Currently no fever and chills. Initial pulse ox on presentation was 91% on room air. Patient is placed on oxygen. Given IV dexamethasone. Admitted with bilateral COVID 19 pneumonia, relative hypoxia. Started on oxygen supplementation, dexamethasone. Today,: Sitting up in a chair. Breathing slightly better. Her cough some shortness of breath. Appetite picking up. Review of systems: Was done for constitutional, cardiovascular, GI, pulmonary. relevant finding as above Active Medications Acetaminophen (Acetaminophen Tab 325 Mg Tab) 650 mg PO Q6HR PRN PRN Reason: Mild Pain or Fever > 100.5 Albuterol Sulfate (Albuterol Hfa Inhaler) 2 puff INHALATION RT-QID [facility] Last Admin: 03/21/21 15:38 Dose: 2 puff Documented by: Apixaban (Apixaban 5 Mg Tab) 10 mg PO BID [facility] Stop: 03/27/21 13:31 Last Admin: 03/21/21 08:38 Dose: 10 mg Documented by: Ascorbic Acid (Ascorbic Acid 500 Mg Tab) 1,000 mg PO DAILY [facility] Last Admin: 03/21/21 08:38 Dose: 1,000 mg Documented by: Benzonatate (Benzonatate 100 Mg Cap) 100 mg PO TID [facility] Last Admin: 03/21/21 15:46 Dose: 100 mg Documented by: Brimonidine Tartrate (Brimonidine Tartrate 0.2% Drops 5 Ml Btl) 1 drops RIGHT EYE BID [facility] Last Admin: 03/21/21 08:40 Dose: 1 drops Documented by: Cholecalciferol (Cholecalciferol 25 Mcg (1000 Iu) Tablet) 100 mcg PO DAILY [facility] Last Admin: 03/21/21 08:38 Dose: 100 mcg Documented by: Dexamethasone Sodium Phosphate (Dexamethasone Sod Phosphate 10 Mg/Ml 1 Ml Vial) 6 mg IV DAILY [facility] Last Admin: 03/21/21 08:39 Dose: 6 mg Documented by: Dorzolamide/Timolol (Dorzolamide-Timolol 2.23%/0.68 10ml Btl) 1 drops RIGHT EYE BID [facility] Last Admin: 03/21/21 08:40 Dose: 1 drops Documented by: Famotidine (Famotidine 20 Mg Tab) 20 mg PO BID [facility] Last Admin: 03/21/21 08:38 Dose: 20 mg Documented by: Lisinopril/HCTZ (Lisinopril-Hctz 20-12.5 Mg 1 Each Tab) 1 each PO DAILY [facility] Last Admin: 03/21/21 08:39 Dose: 1 each Documented by: Latanoprost (Latanoprost 0.005% Ophth Drops 2.5 Ml Btl) 1 drops RIGHT EYE HS [facility] Last Admin: 03/20/21 20:47 Dose: 1 drops Documented by: Montelukast Sodium (Montelukast 10 Mg Tab) 10 mg PO DAILY [facility] Last Admin: 03/21/21 08:38 Dose: 10 mg Documented by: Naloxone HCl (Naloxone 0.4 Mg/Ml 1 Ml Vial) 0.2 mg IV Q2M PRN PRN Reason: Opioid Reversal Psyllium Hydrophilic Mucilloid (Psyllium Husk 100% 6 Gm Packet) 6 gm PO BID [facility] Last Admin: 03/21/21 12:01 Dose: 6 gm Documented by: Vortioxetine (Vortioxetine Hydrobromide 10 Mg Tablet) 10 mg PO DAILY [facility] Last Admin: 03/21/21 08:39 Dose: 10 mg Documented by: Zinc Sulfate (Zinc Sulfate 220 Mg Cap) 220 mg PO DAILY [facility] Last Admin: 03/21/21 08:38 Dose: 220 mg Documented by: Past medical history to include: Hypertension, ALLERGIES, depression Social history: Patient is in his grandfather. Normally does [employer]. Does not smoke or drink alcohol Family history: Reviewed, noncontributory to presentation Physical examination: VITAL SIGNS: 97.8, 80, 20, 125/85, 90% on 5 L GENERAL: Sitting up in a chair, not in distress PULMONARY: Respiratory effort increased PSYCH: Alert and oriented x3; mood and affect slightly tired. NEUROLOGICAL: Cranial nerves grossly intact; no facial asymmetry, moving all 4 limbs Rest of the exam per nursing and pulmonary INVESTIGATIONS, reviewed in the clinical context: WBC 5.9 hemoglobin 11.5 platelets 300 lymphocyte 0.7 d-dimer 1.61 Potassium 3.9 creatinine 0.93 LDH 802 CRP 1.1 pro-calcitonin 0.12 EKG tracing personally reviewed by me-normal sinus rhythm, heart rate 126 Chest CTA: Partial occlusive small subsegmental acute embolism right lower lobe Chest x-ray film personally reviewed by me-bilateral infiltrates Assessment and plan: -Bilateral COVID 19 pneumonia. Patient was diagnosed on February 28. Symptoms is started well before that. IV dexamethasone, vitamin C, vitamin D, Pepcid, zinc. Subcu Lovenox -Related hypoxia with a pulse ox being 91% on room air-worsening On 5 L of nasal cannula -Acute gastroenteritis secondary to COVID 19 Symptomatic treatment -Essential hypertension Continue Zestoretic -Chronic ALLERGIES Continue with Singulair -Depression otherwise specified Continue with Trintellix Continue IV steroids oxygen. Incentive spirometry. Discussed with the patient.
[2021-03-21] MEDS: LATANOPROST 0.005% OPHTH DROPS 2.5 ML BTL RIGHT EYE SCH (21:17)
[2021-03-22] MEDS: PSYLLIUM HUSK 100% 6 GM PACKET PO SCH ×2 (07:27→20:17)
[2021-03-22] MEDS: APIXABAN 5 MG TAB PO SCH ×2 (07:28→20:17)
[2021-03-22] MEDS: ZINC SULFATE 220 MG CAP PO SCH (07:28)
[2021-03-22] MEDS: BENZONATATE 100 MG CAP PO SCH ×3 (07:28→20:17)
[2021-03-22] MEDS: MONTELUKAST 10 MG TAB PO SCH (07:28)
[2021-03-22] MEDS: VORTIOXETINE HYDROBROMIDE 10 MG TABLET PO SCH (07:29)
[2021-03-22] MEDS: CHOLECALCIFEROL 25 MCG (1000 IU) TABLET PO SCH (07:29)
[2021-03-22] MEDS: LISINOPRIL-HCTZ 20-12.5 MG 1 EACH TAB PO SCH (07:29)
[2021-03-22] MEDS: FAMOTIDINE 20 MG TAB PO SCH ×2 (07:29→20:17)
[2021-03-22] MEDS: DEXAMETHASONE SOD PHOSPHATE 10 MG/ML 1 ML VIAL IV SCH (07:29)
[2021-03-22] MEDS: ASCORBIC ACID 500 MG TAB PO SCH (07:29)
[2021-03-22] MEDS: DORZOLAMIDE-TIMOLOL 2.23%/0.68 10ML BTL RIGHT EYE SCH ×2 (07:33→20:18)
[2021-03-22] MEDS: BRIMONIDINE TARTRATE 0.2% DROPS 5 ML BTL RIGHT EYE SCH ×2 (07:33→20:18)
[2021-03-22] MEDS: ALBUTEROL HFA INHALER INHALATION SCH ×4 (08:58→20:55)
--- NOTE | 2021-03-22 15:00 | P.PN ---
Subjective Progress Note Date: 03/22/21 Principal diagnosis: COVID-19 pneumonia, pulmonary embolism This is a 45-year-old white male patient who was diagnosed with COVID-19 on 02/28/2021 when he was seen at [facility] emergency department. We don't have the records from that visit, but patient states he was just given IV fluids in the emergency department, and an inhaler, and was discharged home, he does not think there was pneumonia on the chest x-ray found on that visit. Patient presented to the emergency department on 03/19/2021 with persistent shortness of breath, which she states has not changed over worsened however has not improved. He denied any chest pain or hemoptysis, no leg swelling, no calf tenderness. He denied any nausea or vomiting, he did have diarrhea, he does have a slight cough occasionally. Not usually oxygen dependent at baseline, in the emergency department she was tachypneic and saturating at 88-89% on room air. Chest x-ray showed low lung volumes with left greater than right multifocal and confluent increased reticular opacities bilaterally consistent with history of COVID-19 pneumonia. His labs show lymphopenia, normal white count of 7.1, hemoglobin was 14.1, his d-dimer was elevated at 1.61, his electrolytes and renal profile were unremarkable, plasma lactic acid was 1.1, ferritin level was 675, ALT was 117, LDH was 802, troponin was less than 0.012, CRP was 1.1, pro calcitonin level was negative at 0.12, CTA chest was completed and this was a suboptimal study but no central or clinically significant pulmonary embolism was noted, there was a suggestion of partially occlusive small subsegmental acute embolism in the right lower lobe. There were corresponding to x-ray low lung volumes with multifocal and confluent areas of groundglass opacities. Patient was started on heparin infusion, and Decadron. On 03/21/2021 patient seen in follow-up on medical surgical floor, he looks much more comfortable today, breathing comfortably, in no distress, he remains on 5 L of supplemental oxygen his pulse ox is around 90%, he remains on IV Decadron, we started him on oral anticoagulation and form of Eliquis yesterday, heparin drip has been discontinued, no worsening dyspnea, no worsening hypoxia no chest pain or hemoptysis. Vital signs are stable, blood pressure stable, patient is afebrile. No acute events overnight On 03/22/2021 patient seen in follow-up on medical surgical floor, he is feeling better, still has a cough, and gets exertional dyspnea, but overall is feeling much more comfortably, he is currently on 4 L of oxygen his pulse ox between 92- 93%, was started on Eliquis, heparin drip was discontinued. His vitals have been stable, no headaches, no fever or chills. His appetite has been fair. No complaints of chest discomfort or hemoptysis Objective - Vital Signs Vital signs: Vital Signs Temp 97.5 F L 03/22/21 09:35 Pulse 89 03/22/21 09:35 Resp 18 03/22/21 09:35 BP 111/73 03/22/21 09:35 Pulse Ox 92 L 03/22/21 09:35 Intake & Output 03/21/21 03/22/21 03/22/21 18:59 06:59 18:59 Other: Voiding Method Toilet Toilet # Voids 2 - Exam GENERAL EXAM: Alert, very pleasant, 45-year-old white male, on 4 L of oxygen and pulse ox of 92%, comfortable in no apparent distress. HEAD: Normocephalic/atraumatic. EYES: Normal reaction of pupils, equal size. Conjunctiva pink, sclera white. NOSE: Clear with pink turbinates. THROAT: No erythema or exudates. NECK: No masses, no JVD, no thyroid enlargement, no adenopathy. CHEST: No chest wall deformity. Symmetrical expansion. LUNGS: Equal air entry with diffuse bibasilar crackles CVS: Regular rate and rhythm, normal S1 and S2, no gallops, no murmurs, no rubs ABDOMEN: Soft, nontender. No hepatosplenomegaly, normal bowel sounds, no guarding or rigidity. EXTREMITIES: No clubbing, no edema, no cyanosis, 2+ pulses and upper and lower extremities. MUSCULOSKELETAL: Muscle strength and tone normal. SPINE: No scoliosis or deformity SKIN: No rashes CENTRAL NERVOUS SYSTEM: Alert and oriented -3. No focal deficits, tone is no rmal in all 4 extremities. PSYCHIATRIC: Alert and oriented -3. Appropriate affect. Intact judgment and insight. - Labs CBC & Chem 7: 03/20/21 06:39 03/19/21 14:29 Labs: Abnormal Lab Results - Last 24 Hours (Table) 03/22/21 Range/Units 07:20 D-Dimer 1.01 H (<0.60) mg/L FEU Microbiology - Last 24 Hours (Table) 03/19/21 14:29 Blood Culture - Preliminary Blood No Growth after 48 hours 03/19/21 14:29 Blood Culture - Preliminary Blood No Growth after 48 hours Assessment and Plan Plan: Assessment: #1. Acute hypoxic respiratory failure related to acute COVID-19 pneumonia, first diagnosed on 02/28/2021 at [facility]. Patient is outside the window for Remdesivir #2. Small subsegmental right lower lobe pulmonary embolism #3. History of depression #4. Possible history of chronic bronchial asthma, mild intermittent #5. Lifetime nonsmoker #6. History of hypertension Plan: Continue Eliquis Continue Decadron Continue multivitamins, If no worsening and if patient remains stable he may be considered for discharge home next 24-48 hours possibly on supplemental oxygen I performed a history & physical examination of the patient and discussed their management with my nurse practitioner, Jaz Saeed. I reviewed the nurse practitioner's note and agree with the documented findings and plan of care. Lung sounds are positive for diffuse crackles. The findings and the impression was discussed with the patient. I attest to the documentation by the nurse practitioner. Time with Patient: Less than 30
--- NOTE | 2021-03-22 17:19 | P.PN ---
Progress Note - Text Progress Note Date: 03/22/21 Chief Complaint: Not feeling well History of presenting complaint: This is a pleasant 45-year-old patient of Dr. Fajardo. Chronic stable medical conditions include hypertension, ALLERGIES, depression. Patient was diagnosed with COVID 19 on February 28. 2 days prior to this patient with having different symptoms. Currently patient presented to the ER with increasing shortness of breath diarrhea. No body ache or headache. Decreased appetite. Patient had some loss of smell and taste that has been coming back. Currently no fever and chills. Initial pulse ox on presentation was 91% on room air. Patient is placed on oxygen. Given IV dexamethasone. Admitted with bilateral COVID 19 pneumonia, relative hypoxia. Started on oxygen supplementation, dexamethasone. Today,: Has been up to the bathroom. Oral intake good. Using incentive spirometry. On nasal cannula. Some shortness of breath. Up in the chair Review of systems: Was done for constitutional, cardiovascular, GI, pulmonary. relevant finding as above Active Medications Acetaminophen (Acetaminophen Tab 325 Mg Tab) 650 mg PO Q6HR PRN PRN Reason: Mild Pain or Fever > 100.5 Albuterol Sulfate (Albuterol Hfa Inhaler) 2 puff INHALATION RT-QID [facility] Last Admin: 03/22/21 17:00 Dose: 2 puff Documented by: Apixaban (Apixaban 5 Mg Tab) 10 mg PO BID [facility] Stop: 03/27/21 13:31 Last Admin: 03/22/21 07:28 Dose: 10 mg Documented by: Ascorbic Acid (Ascorbic Acid 500 Mg Tab) 1,000 mg PO DAILY [facility] Last Admin: 03/22/21 07:29 Dose: 1,000 mg Documented by: Benzonatate (Benzonatate 100 Mg Cap) 100 mg PO TID [facility] Last Admin: 03/22/21 15:11 Dose: Not Given Documented by: Brimonidine Tartrate (Brimonidine Tartrate 0.2% Drops 5 Ml Btl) 1 drops RIGHT EYE BID [facility] Last Admin: 03/22/21 07:33 Dose: 1 drops Documented by: Cholecalciferol (Cholecalciferol 25 Mcg (1000 Iu) Tablet) 100 mcg PO DAILY [facility] Last Admin: 03/22/21 07:29 Dose: 100 mcg Documented by: Dexamethasone Sodium Phosphate (Dexamethasone Sod Phosphate 10 Mg/Ml 1 Ml Vial) 6 mg IV DAILY [facility] Last Admin: 03/22/21 07:29 Dose: 6 mg Documented by: Dorzolamide/Timolol (Dorzolamide-Timolol 2.23%/0.68 10ml Btl) 1 drops RIGHT EYE BID [facility] Last Admin: 03/22/21 07:33 Dose: 1 drops Documented by: Famotidine (Famotidine 20 Mg Tab) 20 mg PO BID [facility] Last Admin: 03/22/21 07:29 Dose: 20 mg Documented by: Lisinopril/HCTZ (Lisinopril-Hctz 20-12.5 Mg 1 Each Tab) 1 each PO DAILY [facility] Last Admin: 03/22/21 07:29 Dose: 1 each Documented by: Latanoprost (Latanoprost 0.005% Ophth Drops 2.5 Ml Btl) 1 drops RIGHT EYE HS [facility] Last Admin: 03/21/21 21:17 Dose: 1 drops Documented by: Montelukast Sodium (Montelukast 10 Mg Tab) 10 mg PO DAILY [facility] Last Admin: 03/22/21 07:28 Dose: 10 mg Documented by: Naloxone HCl (Naloxone 0.4 Mg/Ml 1 Ml Vial) 0.2 mg IV Q2M PRN PRN Reason: Opioid Reversal Psyllium Hydrophilic Mucilloid (Psyllium Husk 100% 6 Gm Packet) 6 gm PO BID [facility] Last Admin: 03/22/21 07:27 Dose: 6 gm Documented by: Vortioxetine (Vortioxetine Hydrobromide 10 Mg Tablet) 10 mg PO DAILY [facility] Last Admin: 03/22/21 07:29 Dose: 10 mg Documented by: Zinc Sulfate (Zinc Sulfate 220 Mg Cap) 220 mg PO DAILY [facility] Last Admin: 03/22/21 07:28 Dose: 220 mg Documented by: Past medical history to include: Hypertension, ALLERGIES, depression Social history: Patient is in his grandfather. Normally does [place]. Does not smoke or drink alcohol Family history: Reviewed, noncontributory to presentation Physical examination: VITAL SIGNS: 98, 85, 18, 109 with 76, 93% on 4 L GENERAL: Sitting up in a chair, not in distress PULMONARY: Respiratory effort increased PSYCH: Alert and oriented x3; mood and affect slightly tired. NEUROLOGICAL: Cranial nerves grossly intact; no facial asymmetry, moving all 4 limbs Rest of the exam per nursing and pulmonary INVESTIGATIONS, reviewed in the clinical context: March 22: D-dimer 1.01 CRP 0.8 WBC 5.9 hemoglobin 11.5 platelets 300 lymphocyte 0.7 d-dimer 1.61 Potassium 3.9 creatinine 0.93 LDH 802 CRP 1.1 pro-calcitonin 0.12 EKG tracing personally reviewed by me-normal sinus rhythm, heart rate 126 Chest CTA: Partial occlusive small subsegmental acute embolism right lower lobe Chest x-ray film personally reviewed by me-bilateral infiltrates Assessment and plan: -Bilateral COVID 19 pneumonia. Patient was diagnosed on February 28. Symptoms is started well before that. IV dexamethasone, vitamin C, vitamin D, Pepcid, zinc. Subcu Lovenox -Related hypoxia with a pulse ox being 91% on room slow to respond On 4 L of nasal cannula -Acute gastroenteritis secondary to COVID 19-some improvement Symptomatic treatment -Essential hypertension Continue Zestoretic -Chronic ALLERGIES Continue with Singulair -Depression otherwise specified Continue with Trintellix Continue IV steroids oxygen. Incentive spirometry. Discussed with the patient. Follow with pulmonary
[2021-03-22] MEDS: LATANOPROST 0.005% OPHTH DROPS 2.5 ML BTL RIGHT EYE SCH (20:18)
[2021-03-23] MEDS: ALBUTEROL HFA INHALER INHALATION SCH ×4 (07:35→21:06)
[2021-03-23 08:02] LABS: Basophils % (A) 0 %; Eosinophils % (A) 0 %; HCT 38.2 % (39.0-53.0); HGB 12.2 gm/dL (13.0-17.5); Lymphocytes # (A) 1.2 k/uL (1.0-4.8); Lymphocytes % (A) 16 %; MCH 29.4 pg (25.0-35.0); MCHC 31.8 g/dL (31.0-37.0); MCV 92.3 fL (80.0-100.0); Mean Platelet Volume 7.2; Monocytes # (A) 0.3 k/uL (0-1.0); Monocytes % (A) 4 %; Neutrophils # (A) 5.9 k/uL (1.3-7.7); Neutrophils % (A) 77 %; Platelet Count 299 k/uL (150-450); RBC 4.14 m/uL (4.30-5.90); RDW 14.7 % (11.5-15.5); WBC 7.7 k/uL (3.8-10.6)
[2021-03-23 08:21] LABS: African American GFR (CKD) >90 (>60 ml/min/1.73 sqM); Anion Gap 6 mmol/L; Blood Urea Nitrogen 17 mg/dL (9-20); C Reactive Protein 0.7 mg/dL (<1.0); Calcium 9.2 mg/dL (8.4-10.2); Carbon Dioxide 29 mmol/L (22-30); Chloride 101 mmol/L (98-107); Glucose 92 mg/dL (74-99); Non-African American GFR(CKD) >90 (>60 ml/min/1.73 sqM); Potassium 4.1 mmol/L (3.5-5.1); Sodium 136 mmol/L (137-145)
[2021-03-23] MEDS: ZINC SULFATE 220 MG CAP PO SCH (08:52)
[2021-03-23] MEDS: LISINOPRIL-HCTZ 20-12.5 MG 1 EACH TAB PO SCH (08:52)
[2021-03-23] MEDS: BENZONATATE 100 MG CAP PO SCH ×3 (08:52→20:19)
[2021-03-23] MEDS: DEXAMETHASONE SOD PHOSPHATE 10 MG/ML 1 ML VIAL IV SCH (08:52)
[2021-03-23] MEDS: PSYLLIUM HUSK 100% 6 GM PACKET PO SCH ×2 (08:52→20:19)
[2021-03-23] MEDS: CHOLECALCIFEROL 25 MCG (1000 IU) TABLET PO SCH (08:52)
[2021-03-23] MEDS: VORTIOXETINE HYDROBROMIDE 10 MG TABLET PO SCH (08:52)
[2021-03-23] MEDS: FAMOTIDINE 20 MG TAB PO SCH ×2 (08:52→20:19)
[2021-03-23] MEDS: MONTELUKAST 10 MG TAB PO SCH (08:52)
[2021-03-23] MEDS: ASCORBIC ACID 500 MG TAB PO SCH (08:52)
[2021-03-23] MEDS: APIXABAN 5 MG TAB PO SCH ×2 (08:52→20:19)
[2021-03-23] MEDS: DORZOLAMIDE-TIMOLOL 2.23%/0.68 10ML BTL RIGHT EYE SCH ×2 (08:53→20:20)
[2021-03-23] MEDS: BRIMONIDINE TARTRATE 0.2% DROPS 5 ML BTL RIGHT EYE SCH ×2 (08:53→20:19)
--- NOTE | 2021-03-23 14:31 | P.PN ---
Progress Note - Text Progress Note Date: 03/23/21 Chief Complaint: Not feeling well History of presenting complaint: This is a pleasant 45-year-old patient of Dr. Fajardo. Chronic stable medical conditions include hypertension, ALLERGIES, depression. Patient was diagnosed with COVID 19 on February 28. 2 days prior to this patient with having different symptoms. Currently patient presented to the ER with increasing shortness of breath diarrhea. No body ache or headache. Decreased appetite. Patient had some loss of smell and taste that has been coming back. Currently no fever and chills. Initial pulse ox on presentation was 91% on room air. Patient is placed on oxygen. Given IV dexamethasone. Admitted with bilateral COVID 19 pneumonia, relative hypoxia. Started on oxygen supplementation, dexamethasone. Today,: Oral intake fair. Some shortness of breath. Up to the bathroom. Has been up in a chair. Review of systems: Was done for constitutional, cardiovascular, GI, pulmonary. relevant finding as above Active Medications Acetaminophen (Acetaminophen Tab 325 Mg Tab) 650 mg PO Q6HR PRN PRN Reason: Mild Pain or Fever > 100.5 Albuterol Sulfate (Albuterol Hfa Inhaler) 2 puff INHALATION RT-QID [facility] Last Admin: 03/23/21 11:41 Dose: 2 puff Documented by: Apixaban (Apixaban 5 Mg Tab) 10 mg PO BID [facility] Stop: 03/27/21 13:31 Last Admin: 03/23/21 08:52 Dose: 10 mg Documented by: Ascorbic Acid (Ascorbic Acid 500 Mg Tab) 1,000 mg PO DAILY [facility] Last Admin: 03/23/21 08:52 Dose: 1,000 mg Documented by: Benzonatate (Benzonatate 100 Mg Cap) 100 mg PO TID [facility] Last Admin: 03/23/21 08:52 Dose: 100 mg Documented by: Brimonidine Tartrate (Brimonidine Tartrate 0.2% Drops 5 Ml Btl) 1 drops RIGHT EYE BID [facility] Last Admin: 03/23/21 08:53 Dose: 1 drops Documented by: Cholecalciferol (Cholecalciferol 25 Mcg (1000 Iu) Tablet) 100 mcg PO DAILY [facility] Last Admin: 03/23/21 08:52 Dose: 100 mcg Documented by: Dexamethasone Sodium Phosphate (Dexamethasone Sod Phosphate 10 Mg/Ml 1 Ml Vial) 6 mg IV DAILY [facility] Last Admin: 03/23/21 08:52 Dose: 6 mg Documented by: Dorzolamide/Timolol (Dorzolamide-Timolol 2.23%/0.68 10ml Btl) 1 drops RIGHT EYE BID [facility] Last Admin: 03/23/21 08:53 Dose: 1 drops Documented by: Famotidine (Famotidine 20 Mg Tab) 20 mg PO BID [facility] Last Admin: 03/23/21 08:52 Dose: 20 mg Documented by: Lisinopril/HCTZ (Lisinopril-Hctz 20-12.5 Mg 1 Each Tab) 1 each PO DAILY [facility] Last Admin: 03/23/21 08:52 Dose: 1 each Documented by: Latanoprost (Latanoprost 0.005% Ophth Drops 2.5 Ml Btl) 1 drops RIGHT EYE HS [facility] Last Admin: 03/22/21 20:18 Dose: 1 drops Documented by: Montelukast Sodium (Montelukast 10 Mg Tab) 10 mg PO DAILY [facility] Last Admin: 03/23/21 08:52 Dose: 10 mg Documented by: Naloxone HCl (Naloxone 0.4 Mg/Ml 1 Ml Vial) 0.2 mg IV Q2M PRN PRN Reason: Opioid Reversal Psyllium Hydrophilic Mucilloid (Psyllium Husk 100% 6 Gm Packet) 6 gm PO BID [facility] Last Admin: 03/23/21 08:52 Dose: 6 gm Documented by: Vortioxetine (Vortioxetine Hydrobromide 10 Mg Tablet) 10 mg PO DAILY [facility] Last Admin: 03/23/21 08:52 Dose: 10 mg Documented by: Zinc Sulfate (Zinc Sulfate 220 Mg Cap) 220 mg PO DAILY [facility] Last Admin: 03/23/21 08:52 Dose: 220 mg Documented by: Past medical history to include: Hypertension, ALLERGIES, depression Social history: Patient is in his grandfather. Normally does [employer]. Does not smoke or drink alcohol Family history: Reviewed, noncontributory to presentation Physical examination: VITAL SIGNS: 98.4, 71, 16, 120/74, 96% on 5 L GENERAL: Declining in bed, not in distress PULMONARY: Respiratory effort increased PSYCH: Alert and oriented x3; mood and affect slightly tired. NEUROLOGICAL: Cranial nerves grossly intact; no facial asymmetry, moving all 4 limbs Rest of the exam per nursing and pulmonary INVESTIGATIONS, reviewed in the clinical context: March 23: WBC 7.7 d-dimer 1 CRP 0.7 March 22: D-dimer 1.01 CRP 0.8 WBC 5.9 hemoglobin 11.5 platelets 300 lymphocyte 0.7 d-dimer 1.61 Potassium 3.9 creatinine 0.93 LDH 802 CRP 1.1 pro-calcitonin 0.12 EKG tracing personally reviewed by me-normal sinus rhythm, heart rate 126 Chest CTA: Partial occlusive small subsegmental acute embolism right lower lobe Chest x-ray film personally reviewed by me-bilateral infiltrates Assessment and plan: -Bilateral COVID 19 pneumonia. Patient was diagnosed on February 28. Symptoms is started well before that.-Improving IV dexamethasone, vitamin C, vitamin D, Pepcid, zinc. Subcu Lovenox -Related hypoxia with a pulse ox being 91% on room slow to respond On 5 L of nasal cannula -Acute gastroenteritis secondary to COVID 19-some improvement Symptomatic treatment -Essential hypertension Continue Zestoretic -Chronic ALLERGIES Continue with Singulair -Depression otherwise specified Continue with Trintellix Continue IV steroids oxygen. Incentive spirometry. Discussed with the patient. Try to titrate down FiO2
--- NOTE | 2021-03-23 14:45 | P.PN ---
Subjective Progress Note Date: 03/23/21 Principal diagnosis: COVID-19 pneumonia, pulmonary embolism This is a 45-year-old white male patient who was diagnosed with COVID-19 on 02/28/2021 when he was seen at [facility] emergency department. We don't have the records from that visit, but patient states he was just given IV fluids in the emergency department, and an inhaler, and was discharged home, he does not think there was pneumonia on the chest x-ray found on that visit. Patient presented to the emergency department on 03/19/2021 with persistent shortness of breath, which she states has not changed over worsened however has not improved. He denied any chest pain or hemoptysis, no leg swelling, no calf tenderness. He denied any nausea or vomiting, he did have diarrhea, he does have a slight cough occasionally. Not usually oxygen dependent at baseline, in the emergency department she was tachypneic and saturating at 88-89% on room air. Chest x-ray showed low lung volumes with left greater than right multifocal and confluent increased reticular opacities bilaterally consistent with history of COVID-19 pneumonia. His labs show lymphopenia, normal white count of 7.1, hemoglobin was 14.1, his d-dimer was elevated at 1.61, his electrolytes and renal profile were unremarkable, plasma lactic acid was 1.1, ferritin level was 675, ALT was 117, LDH was 802, troponin was less than 0.012, CRP was 1.1, pro calcitonin level was negative at 0.12, CTA chest was completed and this was a suboptimal study but no central or clinically significant pulmonary embolism was noted, there was a suggestion of partially occlusive small subsegmental acute embolism in the right lower lobe. There were corresponding to x-ray low lung volumes with multifocal and confluent areas of groundglass opacities. Patient was started on heparin infusion, and Decadron. On 03/21/2021 patient seen in follow-up on medical surgical floor, he looks much more comfortable today, breathing comfortably, in no distress, he remains on 5 L of supplemental oxygen his pulse ox is around 90%, he remains on IV Decadron, we started him on oral anticoagulation and form of Eliquis yesterday, heparin drip has been discontinued, no worsening dyspnea, no worsening hypoxia no chest pain or hemoptysis. Vital signs are stable, blood pressure stable, patient is afebrile. No acute events overnight On 03/22/2021 patient seen in follow-up on medical surgical floor, he is feeling better, still has a cough, and gets exertional dyspnea, but overall is feeling much more comfortably, he is currently on 4 L of oxygen his pulse ox between 92- 93%, was started on Eliquis, heparin drip was discontinued. His vitals have been stable, no headaches, no fever or chills. His appetite has been fair. No complaints of chest discomfort or hemoptysis On 03/23/2021 patient seen in follow-up on medical surgical floor, he states his breathing is about the same, still coughs, still takes shallow fast breaths. No complaints of chest discomfort, his been afebrile, he does get short of breath with activity. She remains on Decadron 6 mg daily, he remains on oral Eliquis. No chest discomfort and no hemoptysis. He was instructed on the use of incentive spirometer, today's labs have been reviewed, his d-dimer is 1 on toda y's labs, white blood cell count is normal at 7.7, hemoglobin is 12.2, sodium is 136, dressing electrolytes and renal profile are within normal limits Objective - Vital Signs Vital signs: Vital Signs Temp 97.7 F 03/23/21 09:55 Pulse 80 03/23/21 09:55 Resp 20 03/23/21 09:55 BP 108/71 03/23/21 09:55 Pulse Ox 95 03/23/21 09:55 Intake & Output 03/22/21 03/23/21 03/23/21 18:59 06:59 18:59 Other: Voiding Method Toilet Toilet # Voids 2 2 - Exam GENERAL EXAM: Alert, very pleasant, 45-year-old white male, on 5 L of oxygen and pulse ox of 95%, comfortable in no apparent distress. HEAD: Normocephalic/atraumatic. EYES: Normal reaction of pupils, equal size. Conjunctiva pink, sclera white. NOSE: Clear with pink turbinates. THROAT: No erythema or exudates. NECK: No masses, no JVD, no thyroid enlargement, no adenopathy. CHEST: No chest wall deformity. Symmetrical expansion. LUNGS: Equal air entry with diffuse bibasilar crackles CVS: Regular rate and rhythm, normal S1 and S2, no gallops, no murmurs, no rubs ABDOMEN: Soft, nontender. No hepatosplenomegaly, normal bowel sounds, no guarding or rigidity. EXTREMITIES: No clubbing, no edema, no cyanosis, 2+ pulses and upper and lower extremities. MUSCULOSKELETAL: Muscle strength and tone normal. SPINE: No scoliosis or deformity SKIN: No rashes CENTRAL NERVOUS SYSTEM: Alert and oriented -3. No focal deficits, tone is normal in all 4 extremities. PSYCHIATRIC: Alert and oriented -3. Appropriate affect. Intact judgment and insight. - Labs CBC & Chem 7: 03/23/21 07:12 03/23/21 07:12 Labs: Abnormal Lab Results - Last 24 Hours (Table) 03/23/21 03/23/21 03/23/21 Range/Units 07:12 07:12 07:12 RBC 4.14 L (4.30-5.90) m/uL Hgb 12.2 L (13.0-17.5) gm/dL Hct 38.2 L (39.0-53.0) % D-Dimer 1.00 H (<0.60) mg/L FEU Sodium 136 L (137-145) mmol/L Microbiology - Last 24 Hours (Table) 03/19/21 14:29 Blood Culture - Preliminary Blood No Growth after 72 hours 03/19/21 14:29 Blood Culture - Preliminary Blood No Growth after 72 hours Assessment and Plan Plan: Assessment: #1. Acute hypoxic respiratory failure related to acute COVID-19 pneumonia, first diagnosed on 02/28/2021 at [facility]. Patient is outside the window for Remdesivir #2. Small subsegmental right lower lobe pulmonary embolism #3. History of depression #4. Possible history of chronic bronchial asthma, mild intermittent #5. Lifetime nonsmoker #6. History of hypertension Plan: Wean FiO2 to keep O2 sats ration is at or above 90% Continue Decadron and Eliquis Encourage incentive spirometry use If continues to be stable, may consider for discharge home in the next 24 hours if cleared by medicine I performed a history & physical examination of the patient and discussed their management with my nurse practitioner, Jaz Saeed. I reviewed the nurse practitioner's note and agree with the documented findings and plan of care. Lung sounds are positive for diffuse crackles. The findings and the impression was discussed with the patient. I attest to the documentation by the nurse pra ctitioner. Time with Patient: Less than 30
[2021-03-23] MEDS: LATANOPROST 0.005% OPHTH DROPS 2.5 ML BTL RIGHT EYE SCH (20:19)
[2021-03-24] MEDS: BENZONATATE 100 MG CAP PO SCH ×3 (08:06→20:15)
[2021-03-24] MEDS: MONTELUKAST 10 MG TAB PO SCH (08:06)
[2021-03-24] MEDS: ASCORBIC ACID 500 MG TAB PO SCH (08:06)
[2021-03-24] MEDS: PSYLLIUM HUSK 100% 6 GM PACKET PO SCH ×2 (08:06→20:16)
[2021-03-24] MEDS: FAMOTIDINE 20 MG TAB PO SCH ×2 (08:06→20:16)
[2021-03-24] MEDS: VORTIOXETINE HYDROBROMIDE 10 MG TABLET PO SCH (08:07)
[2021-03-24] MEDS: LISINOPRIL-HCTZ 20-12.5 MG 1 EACH TAB PO SCH (08:07)
[2021-03-24] MEDS: DEXAMETHASONE SOD PHOSPHATE 10 MG/ML 1 ML VIAL IV SCH (08:07)
[2021-03-24] MEDS: APIXABAN 5 MG TAB PO SCH ×2 (08:07→20:16)
[2021-03-24] MEDS: CHOLECALCIFEROL 25 MCG (1000 IU) TABLET PO SCH (08:07)
[2021-03-24] MEDS: ZINC SULFATE 220 MG CAP PO SCH (08:07)
[2021-03-24] MEDS: DORZOLAMIDE-TIMOLOL 2.23%/0.68 10ML BTL RIGHT EYE SCH ×2 (08:10→20:15)
[2021-03-24] MEDS: BRIMONIDINE TARTRATE 0.2% DROPS 5 ML BTL RIGHT EYE SCH ×2 (08:11→20:15)
[2021-03-24] MEDS: ALBUTEROL HFA INHALER INHALATION SCH ×4 (08:59→21:15)
--- NOTE | 2021-03-24 13:41 | P.PN ---
Subjective Progress Note Date: 03/24/21 Principal diagnosis: COVID-19 pneumonia, pulmonary embolism This is a 45-year-old white male patient who was diagnosed with COVID-19 on 02/28/2021 when he was seen at [facility] emergency department. We don't have the records from that visit, but patient states he was just given IV fluids in the emergency department, and an inhaler, and was discharged home, he does not think there was pneumonia on the chest x-ray found on that visit. Patient presented to the emergency department on 03/19/2021 with persistent shortness of breath, which she states has not changed over worsened however has not improved. He denied any chest pain or hemoptysis, no leg swelling, no calf tenderness. He denied any nausea or vomiting, he did have diarrhea, he does have a slight cough occasionally. Not usually oxygen dependent at baseline, in the emergency department she was tachypneic and saturating at 88-89% on room air. Chest x-ray showed low lung volumes with left greater than right multifocal and confluent increased reticular opacities bilaterally consistent with history of COVID-19 pneumonia. His labs show lymphopenia, normal white count of 7.1, hemoglobin was 14.1, his d-dimer was elevated at 1.61, his electrolytes and renal profile were unremarkable, plasma lactic acid was 1.1, ferritin level was 675, ALT was 117, LDH was 802, troponin was less than 0.012, CRP was 1.1, pro calcitonin level was negative at 0.12, CTA chest was completed and this was a suboptimal study but no central or clinically significant pulmonary embolism was noted, there was a suggestion of partially occlusive small subsegmental acute embolism in the right lower lobe. There were corresponding to x-ray low lung volumes with multifocal and confluent areas of groundglass opacities. Patient was started on heparin infusion, and Decadron. On 03/21/2021 patient seen in follow-up on medical surgical floor, he looks much more comfortable today, breathing comfortably, in no distress, he remains on 5 L of supplemental oxygen his pulse ox is around 90%, he remains on IV Decadron, we started him on oral anticoagulation and form of Eliquis yesterday, heparin drip has been discontinued, no worsening dyspnea, no worsening hypoxia no chest pain or hemoptysis. Vital signs are stable, blood pressure stable, patient is afebrile. No acute events overnight On 03/22/2021 patient seen in follow-up on medical surgical floor, he is feeling better, still has a cough, and gets exertional dyspnea, but overall is feeling much more comfortably, he is currently on 4 L of oxygen his pulse ox between 92- 93%, was started on Eliquis, heparin drip was discontinued. His vitals have been stable, no headaches, no fever or chills. His appetite has been fair. No complaints of chest discomfort or hemoptysis On 03/23/2021 patient seen in follow-up on medical surgical floor, he states his breathing is about the same, still coughs, still takes shallow fast breaths. No complaints of chest discomfort, his been afebrile, he does get short of breath with activity. She remains on Decadron 6 mg daily, he remains on oral Eliquis. No chest discomfort and no hemoptysis. He was instructed on the use of incentive spirometer, today's labs have been reviewed, his d-dimer is 1 on toda y's labs, white blood cell count is normal at 7.7, hemoglobin is 12.2, sodium is 136, dressing electrolytes and renal profile are within normal limits On 03/24/2021 patient seen in follow-up on medical surgical floor. No acute distress, although he states he is feeling very fatigued and weak, but no worsening dyspnea, signs have been stable, no fever or chills. No acute events overnight, no complaints of chest discomfort. Does become short of breath with exertion, his been spending a lot of time in bed. No nausea vomiting or diarrhea. He remains on Decadron 6 mg daily, and he is on Eliquis for right lower lobe subsegmental pulmonary embolism. No hemoptysis, no chest pain Objective - Vital Signs Vital signs: Vital Signs Temp 98.1 F 03/24/21 10:00 Pulse 78 03/24/21 10:00 Resp 16 03/24/21 10:00 BP 103/68 03/24/21 10:00 Pulse Ox 93 L 03/24/21 11:14 Intake & Output 03/23/21 03/24/21 03/24/21 18:59 06:59 18:59 Intake Total 236 Balance 236 Intake: Oral 236 Other: Voiding Method Toilet Toilet # Voids 3 - Exam GENERAL EXAM: Alert, very pleasant, 45-year-old white male, on 4 L of oxygen and pulse ox of 94%, comfortable in no apparent distress. HEAD: Normocephalic/atraumatic. EYES: Normal reaction of pupils, equal size. Conjunctiva pink, sclera white. NOSE: Clear with pink turbinates. THROAT: No erythema or exudates. NECK: No masses, no JVD, no thyroid enlargement, no adenopathy. CHEST: No chest wall deformity. Symmetrical expansion. LUNGS: Equal air entry with diffuse bibasilar crackles CVS: Regular rate and rhythm, normal S1 and S2, no gallops, no murmurs, no rubs ABDOMEN: Soft, nontender. No hepatosplenomegaly, normal bowel sounds, no guarding or rigidity. EXTREMITIES: No clubbing, no edema, no cyanosis, 2+ pulses and upper and lower extremities. MUSCULOSKELETAL: Muscle strength and tone normal. SPINE: No scoliosis or deformity SKIN: No rashes CENTRAL NERVOUS SYSTEM: Alert and oriented -3. No focal deficits, tone is normal in all 4 extremities. PSYCHIATRIC: Alert and oriented -3. Appropriate affect. Intact judgment and insight. - Labs CBC & Chem 7: 03/23/21 07:12 03/23/21 07:12 Labs: Microbiology - Last 24 Hours (Table) 03/19/21 14:29 Blood Culture - Preliminary Blood No Growth after 96 hours 03/19/21 14:29 Blood Culture - Preliminary Blood No Growth after 96 hours Assessment and Plan Plan: Assessment: #1. Acute hypoxic respiratory failure related to acute COVID-19 pneumonia, first diagnosed on 02/28/2021 at [facility]. Patient is outside the window for Remdesivir #2. Small subsegmental right lower lobe pulmonary embolism #3. History of depression #4. Possible history of chronic bronchial asthma, mild intermittent #5. Lifetime nonsmoker #6. History of hypertension Plan: FiO2 has become back to 2 L, Overall feeling weak But no worsening dyspnea or cough, no hemoptysis Vital signs have been stable Continue current anticoagulation Continue Decadron If he continues to be stable may consider discharge home in the next 24 hours I performed a history & physical examination of the patient and discussed their management with my nurse practitioner, Jaz Saeed. I reviewed the nurse practitioner's note and agree with the documented findings and plan of care. Lung sounds are positive for diffuse crackles. The findings and the impression was discussed with the patient. I attest to the documentation by the nurse practitioner. Time with Patient: Less than 30
--- NOTE | 2021-03-24 17:23 | P.PN ---
Progress Note - Text Progress Note Date: 03/24/21 Chief Complaint: Not feeling well History of presenting complaint: This is a pleasant 45-year-old patient of Dr. Fajardo. Chronic stable medical conditions include hypertension, ALLERGIES, depression. Patient was diagnosed with COVID 19 on February 28. 2 days prior to this patient with having different symptoms. Currently patient presented to the ER with increasing shortness of breath diarrhea. No body ache or headache. Decreased appetite. Patient had some loss of smell and taste that has been coming back. Currently no fever and chills. Initial pulse ox on presentation was 91% on room air. Patient is placed on oxygen. Given IV dexamethasone. Admitted with bilateral COVID 19 pneumonia, relative hypoxia. Started on oxygen supplementation, dexamethasone. Today,: Feeling a bit tired today. Laying in bed. Some shortness of breath. Oral intake good Review of systems: Was done for constitutional, cardiovascular, GI, pulmonary. relevant finding as above Active Medications Acetaminophen (Acetaminophen Tab 325 Mg Tab) 650 mg PO Q6HR PRN PRN Reason: Mild Pain or Fever > 100.5 Albuterol Sulfate (Albuterol Hfa Inhaler) 2 puff INHALATION RT-QID [facility] Last Admin: 03/24/21 16:09 Dose: 2 puff Documented by: Apixaban (Apixaban 5 Mg Tab) 10 mg PO BID [facility] Stop: 03/27/21 13:31 Last Admin: 03/24/21 08:07 Dose: 10 mg Documented by: Ascorbic Acid (Ascorbic Acid 500 Mg Tab) 1,000 mg PO DAILY [facility] Last Admin: 03/24/21 08:06 Dose: 1,000 mg Documented by: Benzonatate (Benzonatate 100 Mg Cap) 100 mg PO TID [facility] Last Admin: 03/24/21 15:29 Dose: 100 mg Documented by: Brimonidine Tartrate (Brimonidine Tartrate 0.2% Drops 5 Ml Btl) 1 drops RIGHT EYE BID [facility] Last Admin: 03/24/21 08:11 Dose: 1 drops Documented by: Cholecalciferol (Cholecalciferol 25 Mcg (1000 Iu) Tablet) 100 mcg PO DAILY [facility] Last Admin: 03/24/21 08:07 Dose: 100 mcg Documented by: Dexamethasone Sodium Phosphate (Dexamethasone Sod Phosphate 10 Mg/Ml 1 Ml Vial) 6 mg IV DAILY [facility] Last Admin: 03/24/21 08:07 Dose: 6 mg Documented by: Dorzolamide/Timolol (Dorzolamide-Timolol 2.23%/0.68 10ml Btl) 1 drops RIGHT EYE BID [facility] Last Admin: 03/24/21 08:10 Dose: 1 drops Documented by: Famotidine (Famotidine 20 Mg Tab) 20 mg PO BID [facility] Last Admin: 03/24/21 08:06 Dose: 20 mg Documented by: Lisinopril/HCTZ (Lisinopril-Hctz 20-12.5 Mg 1 Each Tab) 1 each PO DAILY [facility] Last Admin: 03/24/21 08:07 Dose: 1 each Documented by: Latanoprost (Latanoprost 0.005% Ophth Drops 2.5 Ml Btl) 1 drops RIGHT EYE HS [facility] Last Admin: 03/23/21 20:19 Dose: 1 drops Documented by: Montelukast Sodium (Montelukast 10 Mg Tab) 10 mg PO DAILY [facility] Last Admin: 03/24/21 08:06 Dose: 10 mg Documented by: Naloxone HCl (Naloxone 0.4 Mg/Ml 1 Ml Vial) 0.2 mg IV Q2M PRN PRN Reason: Opioid Reversal Psyllium Hydrophilic Mucilloid (Psyllium Husk 100% 6 Gm Packet) 6 gm PO BID [facility] Last Admin: 03/24/21 08:06 Dose: 6 gm Documented by: Vortioxetine (Vortioxetine Hydrobromide 10 Mg Tablet) 10 mg PO DAILY [facility] Last Admin: 03/24/21 08:07 Dose: 10 mg Documented by: Zinc Sulfate (Zinc Sulfate 220 Mg Cap) 220 mg PO DAILY [facility] Last Admin: 03/24/21 08:07 Dose: 220 mg Documented by: Past medical history to include: Hypertension, ALLERGIES, depression Social history: Patient is in his grandfather. Normally does [employer]. Does not smoke or drink alcohol Family history: Reviewed, noncontributory to presentation Physical examination: VITAL SIGNS: 98.1, 78, 16, 10 3 x 68, 94% on 4 L GENERAL: Laying in bed, tired PULMONARY: Respiratory effort increased PSYCH: Alert and oriented x3; mood and affect slightly tired. NEUROLOGICAL: Cranial nerves grossly intact; no facial asymmetry, moving all 4 limbs Rest of the exam per nursing and pulmonary INVESTIGATIONS, reviewed in the clinical context: May 2: WBC 7.7 d-dimer 1 CRP 0.7 March 1: D-dimer 1.01 CRP 0.8 WBC 5.9 hemoglobin 11.5 platelets 300 lymphocyte 0.7 d-dimer 1.61 Potassium 3.9 creatinine 0.93 LDH 802 CRP 1.1 pro-calcitonin 0.12 EKG tracing personally reviewed by me-normal sinus rhythm, heart rate 126 Chest CTA: Partial occlusive small subsegmental acute embolism right lower lobe Chest x-ray film personally reviewed by me-bilateral infiltrates Assessment and plan: -Bilateral COVID 19 pneumonia. Patient was diagnosed on February 28. Symptoms is started well before that.-Improving IV dexamethasone, vitamin C, vitamin D, Pepcid, zinc. Subcu Lovenox -Related hypoxia with a pulse ox being 91% on room slow to respond On 4 L of nasal cannula -Acute gastroenteritis secondary to COVID 19-some improvement Symptomatic treatment -Essential hypertension Continue Zestoretic -Chronic ALLERGIES Continue with Singulair -Depression otherwise specified Continue with Trintellix Continue IV steroids oxygen. Incentive spirometry. Discussed with the patient. Titrate FiO2
[2021-03-24] MEDS: LATANOPROST 0.005% OPHTH DROPS 2.5 ML BTL RIGHT EYE SCH (20:15)
[2021-03-25] MEDS: ALBUTEROL HFA INHALER INHALATION SCH ×4 (07:29→20:25)
[2021-03-25] MEDS: VORTIOXETINE HYDROBROMIDE 10 MG TABLET PO SCH (07:55)
[2021-03-25] MEDS: APIXABAN 5 MG TAB PO SCH ×2 (07:56→21:40)
[2021-03-25] MEDS: CHOLECALCIFEROL 25 MCG (1000 IU) TABLET PO SCH (07:56)
[2021-03-25] MEDS: ZINC SULFATE 220 MG CAP PO SCH (07:56)
[2021-03-25] MEDS: DEXAMETHASONE SOD PHOSPHATE 10 MG/ML 1 ML VIAL IV SCH (07:56)
[2021-03-25] MEDS: ASCORBIC ACID 500 MG TAB PO SCH (07:56)
[2021-03-25] MEDS: BENZONATATE 100 MG CAP PO SCH ×3 (07:56→21:40)
[2021-03-25] MEDS: PSYLLIUM HUSK 100% 6 GM PACKET PO SCH ×2 (07:57→21:40)
[2021-03-25] MEDS: MONTELUKAST 10 MG TAB PO SCH (07:57)
[2021-03-25] MEDS: FAMOTIDINE 20 MG TAB PO SCH ×2 (07:57→21:40)
[2021-03-25] MEDS: BRIMONIDINE TARTRATE 0.2% DROPS 5 ML BTL RIGHT EYE SCH ×2 (07:58→21:41)
[2021-03-25] MEDS: LISINOPRIL-HCTZ 20-12.5 MG 1 EACH TAB PO SCH (07:58)
[2021-03-25] MEDS: DORZOLAMIDE-TIMOLOL 2.23%/0.68 10ML BTL RIGHT EYE SCH ×2 (07:58→21:40)
--- NOTE | 2021-03-25 13:21 | P.PN ---
Subjective Progress Note Date: 03/25/21 Principal diagnosis: COVID-19 pneumonia, pulmonary embolism This is a 45-year-old white male patient who was diagnosed with COVID-19 on 02/28/2021 when he was seen at [facility] emergency department. We don't have the records from that visit, but patient states he was just given IV fluids in the emergency department, and an inhaler, and was discharged home, he does not think there was pneumonia on the chest x-ray found on that visit. Patient presented to the emergency department on 03/19/2021 with persistent shortness of breath, which she states has not changed over worsened however has not improved. He denied any chest pain or hemoptysis, no leg swelling, no calf tenderness. He denied any nausea or vomiting, he did have diarrhea, he does have a slight cough occasionally. Not usually oxygen dependent at baseline, in the emergency department she was tachypneic and saturating at 88-89% on room air. Chest x-ray showed low lung volumes with left greater than right multifocal and confluent increased reticular opacities bilaterally consistent with history of COVID-19 pneumonia. His labs show lymphopenia, normal white count of 7.1, hemoglobin was 14.1, his d-dimer was elevated at 1.61, his electrolytes and renal profile were unremarkable, plasma lactic acid was 1.1, ferritin level was 675, ALT was 117, LDH was 802, troponin was less than 0.012, CRP was 1.1, pro calcitonin level was negative at 0.12, CTA chest was completed and this was a suboptimal study but no central or clinically significant pulmonary embolism was noted, there was a suggestion of partially occlusive small subsegmental acute embolism in the right lower lobe. There were corresponding to x-ray low lung volumes with multifocal and confluent areas of groundglass opacities. Patient was started on heparin infusion, and Decadron. On 03/21/2021 patient seen in follow-up on medical surgical floor, he looks much more comfortable today, breathing comfortably, in no distress, he remains on 5 L of supplemental oxygen his pulse ox is around 90%, he remains on IV Decadron, we started him on oral anticoagulation and form of Eliquis yesterday, heparin drip has been discontinued, no worsening dyspnea, no worsening hypoxia no chest pain or hemoptysis. Vital signs are stable, blood pressure stable, patient is afebrile. No acute events overnight On 03/22/2021 patient seen in follow-up on medical surgical floor, he is feeling better, still has a cough, and gets exertional dyspnea, but overall is feeling much more comfortably, he is currently on 4 L of oxygen his pulse ox between 92- 93%, was started on Eliquis, heparin drip was discontinued. His vitals have been stable, no headaches, no fever or chills. His appetite has been fair. No complaints of chest discomfort or hemoptysis On 03/23/2021 patient seen in follow-up on medical surgical floor, he states his breathing is about the same, still coughs, still takes shallow fast breaths. No complaints of chest discomfort, his been afebrile, he does get short of breath with activity. She remains on Decadron 6 mg daily, he remains on oral Eliquis. No chest discomfort and no hemoptysis. He was instructed on the use of incentive spirometer, today's labs have been reviewed, his d-dimer is 1 on toda y's labs, white blood cell count is normal at 7.7, hemoglobin is 12.2, sodium is 136, dressing electrolytes and renal profile are within normal limits On 03/24/2021 patient seen in follow-up on medical surgical floor. No acute distress, although he states he is feeling very fatigued and weak, but no worsening dyspnea, signs have been stable, no fever or chills. No acute events overnight, no complaints of chest discomfort. Does become short of breath with exertion, his been spending a lot of time in bed. No nausea vomiting or diarrhea. He remains on Decadron 6 mg daily, and he is on Eliquis for right lower lobe subsegmental pulmonary embolism. No hemoptysis, no chest pain On 03/25/2021 patient seen in follow-up on medical surgical floor, he sitting up in chair, currently down to 2 L of oxygen, breathing comfortably, his sat is 94%, vital signs are stable, no chest pain, his cough has much improved since admission, no fever or chills, blood pressures have been stable. He continues on Eliquis for pulmonary embolisms, and he continues on IV Decadron 6 mg daily, has had no acute events overnight. No nausea vomiting or diarrhea, tolerating oral intake. Today's labs have been reviewed, his d-dimer is down to 1, his white blood cell count is 7.7, hemoglobin is 12.2, electrodes and renal profile were unremarkable. Objective - Vital Signs Vital signs: Vital Signs Temp 98.3 F 03/25/21 09:58 Pulse 76 03/25/21 09:58 Resp 18 03/25/21 09:58 BP 101/71 03/25/21 09:58 Pulse Ox 94 L 03/25/21 09:58 Intake & Output 03/24/21 03/25/21 03/25/21 18:59 06:59 18:59 Intake Total 472 Balance 472 Intake: Oral 472 Other: Voiding Method Toilet Toilet - Exam GENERAL EXAM: Alert, very pleasant, 45-year-old white male, on 2 L of oxygen and pulse ox of 94%, comfortable in no apparent distress. HEAD: Normocephalic/atraumatic. EYES: Normal reaction of pupils, equal size. Conjunctiva pink, sclera white. NOSE: Clear with pink turbinates. THROAT: No erythema or exudates. NECK: No masses, no JVD, no thyroid enlargement, no adenopathy. CHEST: No chest wall deformity. Symmetrical expansion. LUNGS: Equal air entry with diffuse bibasilar crackles CVS: Regular rate and rhythm, normal S1 and S2, no gallops, no murmurs, no rubs ABDOMEN: Soft, nontender. No hepatosplenomegaly, normal bowel sounds, no guarding or rigidity. EXTREMITIES: No clubbing, no edema, no cyanosis, 2+ pulses and upper and lower extremities. MUSCULOSKELETAL: Muscle strength and tone normal. SPINE: No scoliosis or deformity SKIN: No rashes CENTRAL NERVOUS SYSTEM: Alert and oriented -3. No focal deficits, tone is normal in all 4 extremities. PSYCHIATRIC: Alert and oriented -3. Appropriate affect. Intact judgment and insight. - Labs CBC & Chem 7: 03/23/21 07:12 03/23/21 07:12 Labs: Microbiology - Last 24 Hours (Table) 03/19/21 14:29 Blood Culture - Preliminary Blood No Growth after 120 hours 03/19/21 14:29 Blood Culture - Preliminary Blood No Growth after 120 hours Assessment and Plan Plan: Assessment: #1. Acute hypoxic respiratory failure related to acute COVID-19 pneumonia, first diagnosed on 02/28/2021 at [facility]. Patient is outside the window for Remdesivir #2. Small subsegmental right lower lobe pulmonary embolism #3. History of depression #4. Possible history of chronic bronchial asthma, mild intermittent #5. Lifetime nonsmoker #6. History of hypertension Plan: Continue weaning FiO2 and check home oxygen assessment No worsening dyspnea Vital signs have been stable overnight Cough and dyspnea and weakness are improving Continue Eliquis and Decadron Anticipate discharge home in next 24 hours, continue working on the weaning FiO2 I performed a history & physical examination of the patient and discussed their management with my nurse practitioner, Jaz Saeed. I reviewed the nurse practitioner's note and agree with the documented findings and plan of care. Lung sounds are positive for diffuse crackles. The findings and the impression was discussed with the patient. I attest to the documentation by the nurse practitioner. Time with Patient: Less than 30
--- NOTE | 2021-03-25 19:55 | P.PN ---
Progress Note - Text Progress Note Date: 03/25/21 Chief Complaint: Not feeling well History of presenting complaint: This is a pleasant 45-year-old patient of Dr. Fajardo. Chronic stable medical conditions include hypertension, ALLERGIES, depression. Patient was diagnosed with COVID 19 on February 28. 2 days prior to this patient with having different symptoms. Currently patient presented to the ER with increasing shortness of breath diarrhea. No body ache or headache. Decreased appetite. Patient had some loss of smell and taste that has been coming back. Currently no fever and chills. Initial pulse ox on presentation was 91% on room air. Patient is placed on oxygen. Given IV dexamethasone. Admitted with bilateral COVID 19 pneumonia, relative hypoxia. Started on oxygen supplementation, dexamethasone. Today,: A bit tired. Sitting up in a chair. Oral intake is good. On nasal cannula. Review of systems: Was done for constitutional, cardiovascular, GI, pulmonary. relevant finding as above Active Medications Acetaminophen (Acetaminophen Tab 325 Mg Tab) 650 mg PO Q6HR PRN PRN Reason: Mild Pain or Fever > 100.5 Albuterol Sulfate (Albuterol Hfa Inhaler) 2 puff INHALATION RT-QID [facility] Last Admin: 03/25/21 16:54 Dose: 2 puff Documented by: Apixaban (Apixaban 5 Mg Tab) 10 mg PO BID [facility] Stop: 03/27/21 13:31 Last Admin: 03/25/21 07:56 Dose: 10 mg Documented by: Ascorbic Acid (Ascorbic Acid 500 Mg Tab) 1,000 mg PO DAILY [facility] Last Admin: 03/25/21 07:56 Dose: 1,000 mg Documented by: Benzonatate (Benzonatate 100 Mg Cap) 100 mg PO TID [facility] Last Admin: 03/25/21 16:43 Dose: 100 mg Documented by: Brimonidine Tartrate (Brimonidine Tartrate 0.2% Drops 5 Ml Btl) 1 drops RIGHT EYE BID [facility] Last Admin: 03/25/21 07:58 Dose: 1 drops Documented by: Cholecalciferol (Cholecalciferol 25 Mcg (1000 Iu) Tablet) 100 mcg PO DAILY [facility] Last Admin: 03/25/21 07:56 Dose: 100 mcg Documented by: Dexamethasone Sodium Phosphate (Dexamethasone Sod Phosphate 10 Mg/Ml 1 Ml Vial) 6 mg IV DAILY [facility] Last Admin: 03/25/21 07:56 Dose: 6 mg Documented by: Dorzolamide/Timolol (Dorzolamide-Timolol 2.23%/0.68 10ml Btl) 1 drops RIGHT EYE BID [facility] Last Admin: 03/25/21 07:58 Dose: 1 drops Documented by: Famotidine (Famotidine 20 Mg Tab) 20 mg PO BID [facility] Last Admin: 03/25/21 07:57 Dose: 20 mg Documented by: Lisinopril/HCTZ (Lisinopril-Hctz 20-12.5 Mg 1 Each Tab) 1 each PO DAILY [facility] Last Admin: 03/25/21 07:58 Dose: Not Given Documented by: Latanoprost (Latanoprost 0.005% Ophth Drops 2.5 Ml Btl) 1 drops RIGHT EYE HS [facility] Last Admin: 03/24/21 20:15 Dose: 1 drops Documented by: Montelukast Sodium (Montelukast 10 Mg Tab) 10 mg PO DAILY [facility] Last Admin: 03/25/21 07:57 Dose: 10 mg Documented by: Naloxone HCl (Naloxone 0.4 Mg/Ml 1 Ml Vial) 0.2 mg IV Q2M PRN PRN Reason: Opioid Reversal Psyllium Hydrophilic Mucilloid (Psyllium Husk 100% 6 Gm Packet) 6 gm PO BID [facility] Last Admin: 03/25/21 07:57 Dose: 6 gm Documented by: Vortioxetine (Vortioxetine Hydrobromide 10 Mg Tablet) 10 mg PO DAILY [facility] Last Admin: 03/25/21 07:55 Dose: 10 mg Documented by: Zinc Sulfate (Zinc Sulfate 220 Mg Cap) 220 mg PO DAILY [facility] Last Admin: 03/25/21 07:56 Dose: 220 mg Documented by: Past medical history to include: Hypertension, ALLERGIES, depression Social history: Patient is in his grandfather. Normally does [employer]. Does not smoke or drink alcohol Family history: Reviewed, noncontributory to presentation Physical examination: VITAL SIGNS: 98.3, 76, 18, 101/71, 90% on 2 L GENERAL: Sitting up to chair, tired PULMONARY: Respiratory effort increased PSYCH: Alert and oriented x3; mood and affect slightly tired. NEUROLOGICAL: Cranial nerves grossly intact; no facial asymmetry, moving all 4 limbs Rest of the exam per nursing and pulmonary INVESTIGATIONS, reviewed in the clinical context: May 2: WBC 7.7 d-dimer 1 CRP 0.7 March 1: D-dimer 1.01 CRP 0.8 WBC 5.9 hemoglobin 11.5 platelets 300 lymphocyte 0.7 d-dimer 1.61 Potassium 3.9 creatinine 0.93 LDH 802 CRP 1.1 pro-calcitonin 0.12 EKG tracing personally reviewed by me-normal sinus rhythm, heart rate 126 Chest CTA: Partial occlusive small subsegmental acute embolism right lower lobe Chest x-ray film personally reviewed by me-bilateral infiltrates Assessment and plan: -Bilateral COVID 19 pneumonia. Patient was diagnosed on February 28. Symptoms is started well before that.-Improving IV dexamethasone, vitamin C, vitamin D, Pepcid, zinc. Subcu Lovenox -Related hypoxia with a pulse ox being 91% on room slow to respond On 3 L of nasal cannula -Acute gastroenteritis secondary to COVID much better Symptomatic treatment -Essential hypertension Continue Zestoretic -Chronic ALLERGIES Continue with Singulair -Depression otherwise specified Continue with Trintellix Continue IV steroids oxygen. Incentive spirometry. Discussed with the patient. Try to keep the pulse ox above 94%. 6
[2021-03-25] MEDS: LATANOPROST 0.005% OPHTH DROPS 2.5 ML BTL RIGHT EYE SCH (21:41)
[2021-03-26] MEDS: PSYLLIUM HUSK 100% 6 GM PACKET PO SCH ×2 (07:49→21:24)
[2021-03-26] MEDS: BENZONATATE 100 MG CAP PO SCH ×3 (07:50→21:24)
[2021-03-26] MEDS: LISINOPRIL-HCTZ 20-12.5 MG 1 EACH TAB PO SCH (07:50)
[2021-03-26] MEDS: APIXABAN 5 MG TAB PO SCH ×2 (07:50→21:28)
[2021-03-26] MEDS: ZINC SULFATE 220 MG CAP PO SCH (07:50)
[2021-03-26] MEDS: FAMOTIDINE 20 MG TAB PO SCH ×2 (07:50→21:24)
[2021-03-26] MEDS: VORTIOXETINE HYDROBROMIDE 10 MG TABLET PO SCH (07:50)
[2021-03-26] MEDS: MONTELUKAST 10 MG TAB PO SCH (07:50)
[2021-03-26] MEDS: BRIMONIDINE TARTRATE 0.2% DROPS 5 ML BTL RIGHT EYE SCH ×2 (07:51→21:25)
[2021-03-26] MEDS: ASCORBIC ACID 500 MG TAB PO SCH (07:51)
[2021-03-26] MEDS: DORZOLAMIDE-TIMOLOL 2.23%/0.68 10ML BTL RIGHT EYE SCH ×2 (07:51→21:25)
[2021-03-26] MEDS: CHOLECALCIFEROL 25 MCG (1000 IU) TABLET PO SCH (07:51)
[2021-03-26] MEDS: DEXAMETHASONE SOD PHOSPHATE 10 MG/ML 1 ML VIAL IV SCH (07:52)
[2021-03-26] MEDS: ALBUTEROL HFA INHALER INHALATION SCH ×4 (08:04→20:05)
[2021-03-26 15:35] VITALS: BMI 30.4
--- NOTE | 2021-03-26 16:00 | P.PN ---
Subjective Progress Note Date: 03/26/21 This is a 45-year-old white male patient who was diagnosed with COVID-19 on 02/28/2021 when he was seen at [facility] emergency department. We don't have the records from that visit, but patient states he was just given IV fluids in the emergency department, and an inhaler, and was discharged home, he does not think there was pneumonia on the chest x-ray found on that visit. Patient presented to the emergency department on 03/19/2021 with persistent shortness of breath, which she states has not changed over worsened however has not improved. He denied any chest pain or hemoptysis, no leg swelling, no calf tenderness. He denied any nausea or vomiting, he did have diarrhea, he does have a slight cough occasionally. Not usually oxygen dependent at baseline, in the emergency department she was tachypneic and saturating at 88-89% on room air. Chest x-ray showed low lung volumes with left greater than right multifocal and confluent increased reticular opacities bilate rally consistent with history of COVID-19 pneumonia. His labs show lymphopenia, normal white count of 7.1, hemoglobin was 14.1, his d-dimer was elevated at 1.61, his electrolytes and renal profile were unremarkable, plasma lactic acid was 1.1, ferritin level was 675, ALT was 117, LDH was 802, troponin was less than 0.012, CRP was 1.1, pro calcitonin level was negative at 0.12, CTA chest was completed and this was a suboptimal study but no central or clinically significant pulmonary embolism was noted, there was a suggestion of partially occlusive small subsegmental acute embolism in the right lower lobe. There were corresponding to x-ray low lung volumes with multifocal and confluent areas of groundglass opacities. Patient was started on heparin infusion, and Decadron. On 03/21/2021 patient seen in follow-up on medical surgical floor, he looks much more comfortable today, breathing comfortably, in no distress, he remains on 5 L of supplemental oxygen his pulse ox is around 90%, he remains on IV Decadron, we started him on oral anticoagulation and form of Eliquis yesterday, heparin drip has been discontinued, no worsening dyspnea, no worsening hypoxia no chest pain or hemoptysis. Vital signs are stable, blood pressure stable, patient is afebrile. No acute events overnight On 03/22/2021 patient seen in follow-up on medical surgical floor, he is feeling better, still has a cough, and gets exertional dyspnea, but overall is feeling much more comfortably, he is currently on 4 L of oxygen his pulse ox between 92- 93%, was started on Eliquis, heparin drip was discontinued. His vitals have been stable, no headaches, no fever or chills. His appetite has been fair. No complaints of chest discomfort or hemoptysis On 03/23/2021 patient seen in follow-up on medical surgical floor, he states his breathing is about the same, still coughs, still takes shallow fast breaths. No complaints of chest discomfort, his been afebrile, he does get short of breath with activity. She remains on Decadron 6 mg daily, he remains on oral Eliquis. No chest discomfort and no hemoptysis. He was instructed on the use of incentive spirometer, today's labs have been reviewed, his d-dimer is 1 on today's labs, white blood cell count is normal at 7.7, hemoglobin is 12.2, sodium is 136, dressing electrolytes and renal profile are within normal limits On 03/24/2021 patient seen in follow-up on medical surgical floor. No acute distress, although he states he is feeling very fatigued and weak, but no worsening dyspnea, signs have been stable, no fever or chills. No acute events overnight, no complaints of chest discomfort. Does become short of breath with exertion, his been spending a lot of time in bed. No nausea vomiting or diarrhea. He remains on Decadron 6 mg daily, and he is on Eliquis for right lower lobe subsegmental pulmonary embolism. No hemoptysis, no chest pain On 03/25/2021 patient seen in follow-up on medical surgical floor, he sitting up in chair, currently down to 2 L of oxygen, breathing comfortably, his sat is 94%, vital signs are stable, no chest pain, his cough has much improved since admission, no fever or chills, blood pressures have been stable. He continues on Eliquis for pulmonary embolisms, and he continues on IV Decadron 6 mg daily, has had no acute events overnight. No nausea vomiting or diarrhea, tolerating oral intake. Today's labs have been reviewed, his d-dimer is down to 1, his white blood cell count is 7.7, hemoglobin is 12.2, electrodes and renal profile were unremarkable. On 03/26/2021, I'm seeing the patient for a follow-up. The patient is still on 2 L of oxygen by nasal cannula. Unable to wean as the patient desaturated while on room air oxygen. Discussed the case with the medical team. May possibly go home with home oxygen concentrator. D-dimer remains low at 0.6. Rest of the electrolytes are all within normal limits. The patient is on Decadron 6 mg IV every 24 hours. The patient is also on Eliquis 10 mg by mouth twice a day. Home medications and resume. He remains on vitamin C and vitamin D and zinc. No fever. No chills. Tolerating his diet. intestinal symptoms for now. No altered mentation. Resting comfortably in bed. Using incentive spirometer. Pulse ox on 3 L is ranging between 90-93%. Objective - Vital Signs Vital signs: Vital Signs Temp 98.4 F 03/26/21 13:26 Pulse 99 03/26/21 13:26 Resp 19 03/26/21 13:26 BP 112/73 03/26/21 13:26 Pulse Ox 93 L 03/26/21 15:51 Intake & Output 03/25/21 03/26/21 03/26/21 18:59 06:59 18:59 Intake Total 480 Balance 480 Weight 90.718 kg Intake: Oral 480 Other: Voiding Method Toilet # Voids 3 - Exam GENERAL EXAM: Alert, very pleasant, 45-year-old white male, on 2-3 L of oxygen and pulse ox of 94%, comfortable in no apparent distress. HEAD: Normocephalic/atraumatic. EYES: Normal reaction of pupils, equal size. Conjunctiva pink, sclera white. NOSE: Clear with pink turbinates. THROAT: No erythema or exudates. NECK: No masses, no JVD, no thyroid enlargement, no adenopathy. CHEST: No chest wall deformity. Symmetrical expansion. LUNGS: Equal air entry with diffuse bibasilar crackles CVS: Regular rate and rhythm, normal S1 and S2, no gallops, no murmurs, no rubs ABDOMEN: Soft, nontender. No hepatosplenomegaly, normal bowel sounds, no guar ding or rigidity. EXTREMITIES: No clubbing, no edema, no cyanosis, 2+ pulses and upper and lower extremities. MUSCULOSKELETAL: Muscle strength and tone normal. SPINE: No scoliosis or deformity SKIN: No rashes CENTRAL NERVOUS SYSTEM: Alert and oriented -3. No focal deficits, tone is normal in all 4 extremities. PSYCHIATRIC: Alert and oriented -3. Appropriate affect. Intact judgment and insight. - Labs CBC & Chem 7: 03/23/21 07:12 03/23/21 07:12 Labs: Abnormal Lab Results - Last 24 Hours (Table) 03/26/21 Range/Units 06:01 D-Dimer 0.64 H (<0.60) mg/L FEU Microbiology - Last 24 Hours (Table) 03/19/21 14:29 Blood Culture - Final Blood No Growth after 144 hours 03/19/21 14:29 Blood Culture - Final Blood No Growth after 144 hours Assessment and Plan Plan: #1. Acute hypoxic respiratory failure related to acute COVID-19 pneumonia, first diagnosed on 02/28/2021 at [facility]. Patient is outside the window for Remdesivir, currently on oxygen between 2 and 3 L per minute nasal cannula. The patient is also being treated for a small subsegmental right lower lobe pulmonary embolism. His current ventricle dilated with Eliquis. No worsening in shortness of breath. No worsening in oxygenat ion. Still requiring oxygen between 2 and 3 L #2. Small subsegmental right lower lobe pulmonary embolism #3. History of depression #4. Possible history of chronic bronchial asthma, mild intermittent #5. Lifetime nonsmoker #6. History of hypertension Plan: Continue weaning FiO2 and check home oxygen assessment Continue using incentive spirometer Continue daily Decadron 6 mg by mouth daily Anticoagulation with Eliquis We'll make arrangements for possible discharge in a.m. along with a home concentrator. Case was discussed with the medical team.
[2021-03-26] MEDS: LATANOPROST 0.005% OPHTH DROPS 2.5 ML BTL RIGHT EYE SCH (21:25)
--- NOTE | 2021-03-26 21:58 | P.PN ---
Progress Note - Text Progress Note Date: 03/26/21 Chief Complaint: Not feeling well History of presenting complaint: This is a pleasant 45-year-old patient of Dr. Fajardo. Chronic stable medical conditions include hypertension, ALLERGIES, depression. Patient was diagnosed with COVID 19 on February 28. 2 days prior to this patient with having different symptoms. Currently patient presented to the ER with increasing shortness of breath diarrhea. No body ache or headache. Decreased appetite. Patient had some loss of smell and taste that has been coming back. Currently no fever and chills. Initial pulse ox on presentation was 91% on room air. Patient is placed on oxygen. Given IV dexamethasone. Admitted with bilateral COVID 19 pneumonia, relative hypoxia. Started on oxygen supplementation, dexamethasone. Today,: Feeling a bit tired. Oral intake fine. 90% on 2 L. Laying in bed. Review of systems: Was done for constitutional, cardiovascular, GI, pulmonary. relevant finding as above Active Medications Acetaminophen (Acetaminophen Tab 325 Mg Tab) 650 mg PO Q6HR PRN PRN Reason: Mild Pain or Fever > 100.5 Albuterol Sulfate (Albuterol Hfa Inhaler) 2 puff INHALATION RT-QID [facility] Last Admin: 03/26/21 20:05 Dose: 2 puff Documented by: Apixaban (Apixaban 5 Mg Tab) 10 mg PO BID [facility] Stop: 03/27/21 13:31 Last Admin: 03/26/21 21:28 Dose: 10 mg Documented by: Ascorbic Acid (Ascorbic Acid 500 Mg Tab) 1,000 mg PO DAILY [facility] Last Admin: 03/26/21 07:51 Dose: 1,000 mg Documented by: Benzonatate (Benzonatate 100 Mg Cap) 100 mg PO TID [facility] Last Admin: 03/26/21 21:24 Dose: 100 mg Documented by: Brimonidine Tartrate (Brimonidine Tartrate 0.2% Drops 5 Ml Btl) 1 drops RIGHT EYE BID [facility] Last Admin: 03/26/21 21:25 Dose: 1 drops Documented by: Cholecalciferol (Cholecalciferol 25 Mcg (1000 Iu) Tablet) 100 mcg PO DAILY [facility] Last Admin: 03/26/21 07:51 Dose: 100 mcg Documented by: Dexamethasone Sodium Phosphate (Dexamethasone Sod Phosphate 10 Mg/Ml 1 Ml Vial) 6 mg IV DAILY [facility] Last Admin: 03/26/21 07:52 Dose: 6 mg Documented by: Dorzolamide/Timolol (Dorzolamide-Timolol 2.23%/0.68 10ml Btl) 1 drops RIGHT EYE BID [facility] Last Admin: 03/26/21 21:25 Dose: 1 drops Documented by: Famotidine (Famotidine 20 Mg Tab) 20 mg PO BID [facility] Last Admin: 03/26/21 21:24 Dose: 20 mg Documented by: Lisinopril/HCTZ (Lisinopril-Hctz 20-12.5 Mg 1 Each Tab) 1 each PO DAILY [facility] Last Admin: 03/26/21 07:50 Dose: 1 each Documented by: Latanoprost (Latanoprost 0.005% Ophth Drops 2.5 Ml Btl) 1 drops RIGHT EYE HS [facility] Last Admin: 03/26/21 21:25 Dose: 1 drops Documented by: Montelukast Sodium (Montelukast 10 Mg Tab) 10 mg PO DAILY [facility] Last Admin: 03/26/21 07:50 Dose: 10 mg Documented by: Naloxone HCl (Naloxone 0.4 Mg/Ml 1 Ml Vial) 0.2 mg IV Q2M PRN PRN Reason: Opioid Reversal Psyllium Hydrophilic Mucilloid (Psyllium Husk 100% 6 Gm Packet) 6 gm PO BID [facility] Last Admin: 03/26/21 21:24 Dose: 6 gm Documented by: Vortioxetine (Vortioxetine Hydrobromide 10 Mg Tablet) 10 mg PO DAILY [facility] Last Admin: 03/26/21 07:50 Dose: 10 mg Documented by: Zinc Sulfate (Zinc Sulfate 220 Mg Cap) 220 mg PO DAILY [facility] Last Admin: 03/26/21 07:50 Dose: 220 mg Documented by: Past medical history to include: Hypertension, ALLERGIES, depression Social history: Patient is in his grandfather. Normally does [employer]. Does not smoke or drink alcohol Family history: Reviewed, noncontributory to presentation Physical examination: VITAL SIGNS: 98.3, 92, 22, 117/84, 95% on 4 L GENERAL: Laying in bed,, tired PULMONARY: Respiratory effort increased PSYCH: Alert and oriented x3; mood and affect slightly tired. NEUROLOGICAL: Cranial nerves grossly intact; no facial asymmetry, moving all 4 limbs Rest of the exam per nursing and pulmonary INVESTIGATIONS, reviewed in the clinical context: May 2: WBC 7.7 d-dimer 1 CRP 0.7 March 1: D-dimer 1.01 CRP 0.8 WBC 5.9 hemoglobin 11.5 platelets 300 lymphocyte 0.7 d-dimer 1.61 Potassium 3.9 creatinine 0.93 LDH 802 CRP 1.1 pro-calcitonin 0.12 EKG tracing personally reviewed by me-normal sinus rhythm, heart rate 126 Chest CTA: Partial occlusive small subsegmental acute embolism right lower lobe Chest x-ray film personally reviewed by me-bilateral infiltrates Assessment and plan: -Bilateral COVID 19 pneumonia. Patient was diagnosed on February 28. Symptoms is started well before that.-Improving IV dexamethasone, vitamin C, vitamin D, Pepcid, zinc. Subcu Lovenox -Related hypoxia with a pulse ox being 91% on room slow to respond Was 90% on 2 L. Increase to 4 L now 95%. -Acute gastroenteritis secondary to COVID much better Symptomatic treatment -Essential hypertension Continue Zestoretic -Chronic ALLERGIES Continue with Singulair -Depression otherwise specified Continue with Trintellix Continue current medication treatment plan. Arrange for home oxygen. Discussed with Dr. Moctezuma and the patient 6
[2021-03-27] MEDS: LISINOPRIL-HCTZ 20-12.5 MG 1 EACH TAB PO SCH (07:45)
[2021-03-27] MEDS: ZINC SULFATE 220 MG CAP PO SCH (07:45)
[2021-03-27] MEDS: MONTELUKAST 10 MG TAB PO SCH (07:45)
[2021-03-27] MEDS: APIXABAN 5 MG TAB PO SCH (07:45)
[2021-03-27] MEDS: CHOLECALCIFEROL 25 MCG (1000 IU) TABLET PO SCH (07:46)
[2021-03-27] MEDS: BENZONATATE 100 MG CAP PO SCH ×3 (07:46→21:58)
[2021-03-27] MEDS: ASCORBIC ACID 500 MG TAB PO SCH (07:46)
[2021-03-27] MEDS: FAMOTIDINE 20 MG TAB PO SCH ×2 (07:46→21:56)
[2021-03-27] MEDS: PSYLLIUM HUSK 100% 6 GM PACKET PO SCH ×2 (07:46→21:56)
[2021-03-27] MEDS: BRIMONIDINE TARTRATE 0.2% DROPS 5 ML BTL RIGHT EYE SCH ×2 (07:46→21:56)
[2021-03-27] MEDS: VORTIOXETINE HYDROBROMIDE 10 MG TABLET PO SCH (07:46)
[2021-03-27] MEDS: DORZOLAMIDE-TIMOLOL 2.23%/0.68 10ML BTL RIGHT EYE SCH ×2 (07:47→21:56)
[2021-03-27] MEDS: DEXAMETHASONE SOD PHOSPHATE 10 MG/ML 1 ML VIAL IV SCH (07:47)
[2021-03-27] MEDS: ALBUTEROL HFA INHALER INHALATION SCH ×5 (08:36→20:46)
--- NOTE | 2021-03-27 12:33 | XR ---
EXAMINATION TYPE: XR chest 1V portable DATE OF EXAM: 03/27/2021 CLINICAL HISTORY: Difficulty breathing progress study. TECHNIQUE: Single AP portable upright view of the chest is obtained. COMPARISON: Chest x-ray and CTA chest from March 19, 2021 FINDINGS: Persistent low lung volumes and mid to lower lungs left greater than right bilateral multi focal opacities greatest in the periphery and greatest in the left lung base. Cardiac silhouette size is stable and within normal limits. Osseous structures are intact. IMPRESSION: Persistent low lung volumes and mid to lower lungs left greater than right multifocal opa cities consistent with known covid-19 infection. Likely some improvement in the right lung findings. No significant change on the left.
--- NOTE | 2021-03-27 15:45 | P.PN ---
Subjective Progress Note Date: 03/27/21 Principal diagnosis: COVID-19 pneumonia, pulmonary embolism This is a 45-year-old white male patient who was diagnosed with COVID-19 on 02/28/2021 when he was seen at [facility] emergency department. We don't have the records from that visit, but patient states he was just given IV fluids in the emergency department, and an inhaler, and was discharged home, he does not think there was pneumonia on the chest x-ray found on that visit. Patient presented to the emergency department on 03/19/2021 with persistent shortness of breath, which she states has not changed over worsened however has not improved. He denied any chest pain or hemoptysis, no leg swelling, no calf tenderness. He denied any nausea or vomiting, he did have diarrhea, he does have a slight cough occasionally. Not usually oxygen dependent at baseline, in the emergency department she was tachypneic and saturating at 88-89% on room air. Chest x-ray showed low lung volumes with left greater than right multifocal and confluent increased reticular opacities bilaterally consistent with history of COVID-19 pneumonia. His labs show lymphopenia, normal white count of 7.1, hemoglobin was 14.1, his d-dimer was elevated at 1.61, his electrolytes and renal profile were unremarkable, plasma lactic acid was 1.1, ferritin level was 675, ALT was 117, LDH was 802, troponin was less than 0.012, CRP was 1.1, pro calcitonin level was negative at 0.12, CTA chest was completed and this was a suboptimal study but no central or clinically significant pulmonary embolism was noted, there was a suggestion of partially occlusive small subsegmental acute embolism in the right lower lobe. There were corresponding to x-ray low lung volumes with multifocal and confluent areas of groundglass opacities. Patient was started on heparin infusion, and Decadron. On 03/21/2021 patient seen in follow-up on medical surgical floor, he looks much more comfortable today, breathing comfortably, in no distress, he remains on 5 L of supplemental oxygen his pulse ox is around 90%, he remains on IV Decadron, we started him on oral anticoagulation and form of Eliquis yesterday, heparin drip has been discontinued, no worsening dyspnea, no worsening hypoxia no chest pain or hemoptysis. Vital signs are stable, blood pressure stable, patient is afebrile. No acute events overnight On 03/22/2021 patient seen in follow-up on medical surgical floor, he is feeling better, still has a cough, and gets exertional dyspnea, but overall is feeling much more comfortably, he is currently on 4 L of oxygen his pulse ox between 92- 93%, was started on Eliquis, heparin drip was discontinued. His vitals have been stable, no headaches, no fever or chills. His appetite has been fair. No complaints of chest discomfort or hemoptysis On 03/23/2021 patient seen in follow-up on medical surgical floor, he states his breathing is about the same, still coughs, still takes shallow fast breaths. No complaints of chest discomfort, his been afebrile, he does get short of breath with activity. She remains on Decadron 6 mg daily, he remains on oral Eliquis. No chest discomfort and no hemoptysis. He was instructed on the use of incentive spirometer, today's labs have been reviewed, his d-dimer is 1 on toda y's labs, white blood cell count is normal at 7.7, hemoglobin is 12.2, sodium is 136, dressing electrolytes and renal profile are within normal limits On 03/24/2021 patient seen in follow-up on medical surgical floor. No acute distress, although he states he is feeling very fatigued and weak, but no worsening dyspnea, signs have been stable, no fever or chills. No acute events overnight, no complaints of chest discomfort. Does become short of breath with exertion, his been spending a lot of time in bed. No nausea vomiting or diarrhea. He remains on Decadron 6 mg daily, and he is on Eliquis for right lower lobe subsegmental pulmonary embolism. No hemoptysis, no chest pain On 03/25/2021 patient seen in follow-up on medical surgical floor, he sitting up in chair, currently down to 2 L of oxygen, breathing comfortably, his sat is 94%, vital signs are stable, no chest pain, his cough has much improved since admission, no fever or chills, blood pressures have been stable. He continues on Eliquis for pulmonary embolisms, and he continues on IV Decadron 6 mg daily, has had no acute events overnight. No nausea vomiting or diarrhea, tolerating oral intake. Today's labs have been reviewed, his d-dimer is down to 1, his white blood cell count is 7.7, hemoglobin is 12.2, electrodes and renal profile were unremarkable. On 03/27/2021 patient seen in follow-up, history of and 2 L of oxygen, he sitting up in the chair, breathing comfortably, has had no acute events overnight, she was ambulated on room air, and he did desaturate to 88% on room air with ambulation in as such qualifies for home oxygen, his had no worsening in his dyspnea, he still has a cough, which is nonproductive, no chest discomfort, altered mentation, no fever or chills, his vital signs have been stable, no acute events overnight. Blood pressure has been stable, follow-up chest x-ray today shows persistent low lung volumes and mid to lower lungs left greater than right multifocal opacities with possibly some improvement in his right lung findings. No new labs, patient remains on Eliquis for pulmonary embolisms. He is on oral Decadron 6 mg daily. Objective - Vital Signs Vital signs: Vital Signs Temp 98.0 F 03/27/21 14:00 Pulse 107 H 03/27/21 14:00 Resp 22 03/27/21 14:00 BP 114/76 03/27/21 14:00 Pulse Ox 89 L 03/27/21 14:00 Intake & Output 03/26/21 03/27/21 03/27/21 18:59 06:59 18:59 Weight 90.718 kg Other: Voiding Method Toilet Toilet # Voids 2 2 - Exam GENERAL EXAM: Alert, very pleasant, 45-year-old white male, on 3 L of oxygen and pulse ox of 90%, comfortable in no apparent distress. HEAD: Normocephalic/atraumatic. EYES: Normal reaction of pupils, equal size. Conjunctiva pink, sclera white. NOSE: Clear with pink turbinates. THROAT: No erythema or exudates. NECK: No masses, no JVD, no thyroid enlargement, no adenopathy. CHEST: No chest wall deformity. Symmetrical expansion. LUNGS: Equal air entry with diffuse bibasilar crackles CVS: Regular rate and rhythm, normal S1 and S2, no gallops, no murmurs, no rubs ABDOMEN: Soft, nontender. No hepatosplenomegaly, normal bowel sounds, no guarding or rigidity. EXTREMITIES: No clubbing, no edema, no cyanosis, 2+ pulses and upper and lower extremities. MUSCULOSKELETAL: Muscle strength and tone normal. SPINE: No scoliosis or deformity SKIN: No rashes CENTRAL NERVOUS SYSTEM: Alert and oriented -3. No focal deficits, tone is normal in all 4 extremities. PSYCHIATRIC: Alert and oriented -3. Appropriate affect. Intact judgment and insight. - Labs CBC & Chem 7: 03/23/21 07:12 03/23/21 07:12 Assessment and Plan Plan: Assessment: #1. Acute hypoxic respiratory failure related to acute COVID-19 pneumonia, first diagnosed on 02/28/2021 at [facility]. Patient is outside the window for Remdesivir #2. Small subsegmental right lower lobe pulmonary embolism #3. History of depression #4. Possible history of chronic bronchial asthma, mild intermittent #5. Lifetime nonsmoker #6. History of hypertension Plan: Patient's breathing has been stable, no worsening Down to 2-3 L of oxygen Did desaturate to 88% with ambulation and ascites qualifies for home oxygen at 2-3 L Continue Eliquis Vital signs have been stable From pulmonary perspective he came in discharge home today on home oxygen, Eliquis, and he can finish outpatient course of Decadron I performed a history & physical examination of the patient and discussed their management with my nurse practitioner, Jaz Saeed. I reviewed the nurse practitioner's note and agree with the documented findings and plan of care. Lung sounds are positive for diffuse crackles. The findings and the impression was discussed with the patient. I attest to the documentation by the nurse practitioner. Time with Patient: Less than 30
--- NOTE | 2021-03-27 16:46 | P.PN ---
Progress Note - Text Progress Note Date: 03/27/21 Chief Complaint: Not feeling well History of presenting complaint: This is a pleasant 45-year-old patient of Dr. Fajardo. Chronic stable medical conditions include hypertension, ALLERGIES, depression. Patient was diagnosed with COVID 19 on February 28. 2 days prior to this patient with having different symptoms. Currently patient presented to the ER with increasing shortness of breath diarrhea. No body ache or headache. Decreased appetite. Patient had some loss of smell and taste that has been coming back. Currently no fever and chills. Initial pulse ox on presentation was 91% on room air. Patient is placed on oxygen. Given IV dexamethasone. Admitted with bilateral COVID 19 pneumonia, relative hypoxia. Started on oxygen supplementation, dexamethasone. Today,: Diet. Slightly short of breath. Saw the patient this afternoon. 90% on 3 L. Had the patient walker about 20-25 seconds patient did drop down to 87%. Oral intake fair. Review of systems: Was done for constitutional, cardiovascular, GI, pulmonary. relevant finding as above Active Medications Acetaminophen (Acetaminophen Tab 325 Mg Tab) 650 mg PO Q6HR PRN PRN Reason: Mild Pain or Fever > 100.5 Albuterol Sulfate (Albuterol Hfa Inhaler) 2 puff INHALATION RT-QID [facility] Last Admin: 03/27/21 16:14 Dose: 2 puff Documented by: Ascorbic Acid (Ascorbic Acid 500 Mg Tab) 1,000 mg PO DAILY [facility] Last Admin: 03/27/21 07:46 Dose: 1,000 mg Documented by: Benzonatate (Benzonatate 100 Mg Cap) 100 mg PO TID [facility] Last Admin: 03/27/21 16:30 Dose: 100 mg Documented by: Brimonidine Tartrate (Brimonidine Tartrate 0.2% Drops 5 Ml Btl) 1 drops RIGHT EYE BID [facility] Last Admin: 03/27/21 07:46 Dose: 1 drops Documented by: Cholecalciferol (Cholecalciferol 25 Mcg (1000 Iu) Tablet) 100 mcg PO DAILY [facility] Last Admin: 03/27/21 07:46 Dose: 100 mcg Documented by: Dexamethasone Sodium Phosphate (Dexamethasone Sod Phosphate 10 Mg/Ml 1 Ml Vial) 6 mg IV DAILY [facility] Last Admin: 03/27/21 07:47 Dose: 6 mg Documented by: Dorzolamide/Timolol (Dorzolamide-Timolol 2.23%/0.68 10ml Btl) 1 drops RIGHT EYE BID [facility] Last Admin: 03/27/21 07:47 Dose: 1 drops Documented by: Famotidine (Famotidine 20 Mg Tab) 20 mg PO BID [facility] Last Admin: 03/27/21 07:46 Dose: 20 mg Documented by: Lisinopril/HCTZ (Lisinopril-Hctz 20-12.5 Mg 1 Each Tab) 1 each PO DAILY [facility] Last Admin: 03/27/21 07:45 Dose: 1 each Documented by: Latanoprost (Latanoprost 0.005% Ophth Drops 2.5 Ml Btl) 1 drops RIGHT EYE HS [facility] Last Admin: 03/26/21 21:25 Dose: 1 drops Documented by: Montelukast Sodium (Montelukast 10 Mg Tab) 10 mg PO DAILY [facility] Last Admin: 03/27/21 07:45 Dose: 10 mg Documented by: Naloxone HCl (Naloxone 0.4 Mg/Ml 1 Ml Vial) 0.2 mg IV Q2M PRN PRN Reason: Opioid Reversal Psyllium Hydrophilic Mucilloid (Psyllium Husk 100% 6 Gm Packet) 6 gm PO BID [facility] Last Admin: 03/27/21 07:46 Dose: 6 gm Documented by: Vortioxetine (Vortioxetine Hydrobromide 10 Mg Tablet) 10 mg PO DAILY [facility] Last Admin: 03/27/21 07:46 Dose: 10 mg Documented by: Zinc Sulfate (Zinc Sulfate 220 Mg Cap) 220 mg PO DAILY [facility] Last Admin: 03/27/21 07:45 Dose: 220 mg Documented by: Past medical history to include: Hypertension, ALLERGIES, depression Social history: Patient is in his grandfather. Normally does D2S. Does not smoke or drink alcohol Family history: Reviewed, noncontributory to presentation Physical examination: VITAL SIGNS: 98.2, 95,'s 16, 110/77, 90% on 3 L GENERAL: Laying in bed,, tired PULMONARY: Respiratory effort increased PSYCH: Alert and oriented x3; mood and affect slightly tired. NEUROLOGICAL: Cranial nerves grossly intact; no facial asymmetry, moving all 4 limbs Rest of the exam per nursing and pulmonary INVESTIGATIONS, reviewed in the clinical context: March 5: D-dimer 0.64 March 2: WBC 7.7 d-dimer 1 CRP 0.7 March 1: D-dimer 1.01 CRP 0.8 WBC 5.9 hemoglobin 11.5 platelets 300 lymphocyte 0.7 d-dimer 1.61 Potassium 3.9 creatinine 0.93 LDH 802 CRP 1.1 pro-calcitonin 0.12 EKG tracing personally reviewed by me-normal sinus rhythm, heart rate 126 Chest CTA: Partial occlusive small subsegmental acute embolism right lower lobe Chest x-ray film personally reviewed by me-bilateral infiltrates Assessment and plan: -Bilateral COVID 19 pneumonia. Patient was diagnosed on February 28. Symptoms is started well before that.-Improving IV dexamethasone, vitamin C, vitamin D, Pepcid, zinc. Subcu Lovenox -Related hypoxia secondary to COVID 19 pneumonia. Was 90% on 2 L. currently 90% on 3 L -Acute gastroenteritis secondary to COVID much better Symptomatic treatment -Essential hypertension Continue Zestoretic -Chronic ALLERGIES Continue with Singulair -Depression otherwise specified Continue with Trintellix Patient gets easily short winded and tachycardic on taking a few steps. We'll have the patient increase activity today. And if remains okay we'll discharge him tomorrow. 6
[2021-03-27] MEDS: LATANOPROST 0.005% OPHTH DROPS 2.5 ML BTL RIGHT EYE SCH (21:57)
[2021-03-28 05:23] VITALS: RESP 18
[2021-03-28] MEDS: DEXAMETHASONE SOD PHOSPHATE 10 MG/ML 1 ML VIAL IV SCH (07:46)
[2021-03-28] MEDS: CHOLECALCIFEROL 25 MCG (1000 IU) TABLET PO SCH (07:46)
[2021-03-28] MEDS: ZINC SULFATE 220 MG CAP PO SCH (07:47)
[2021-03-28] MEDS: MONTELUKAST 10 MG TAB PO SCH (07:47)
[2021-03-28] MEDS: DORZOLAMIDE-TIMOLOL 2.23%/0.68 10ML BTL RIGHT EYE SCH (07:47)
[2021-03-28] MEDS: ASCORBIC ACID 500 MG TAB PO SCH (07:47)
[2021-03-28] MEDS: BRIMONIDINE TARTRATE 0.2% DROPS 5 ML BTL RIGHT EYE SCH (07:47)
[2021-03-28] MEDS: FAMOTIDINE 20 MG TAB PO SCH (07:47)
[2021-03-28] MEDS: BENZONATATE 100 MG CAP PO SCH (07:47)
[2021-03-28] MEDS: VORTIOXETINE HYDROBROMIDE 10 MG TABLET PO SCH (07:48)
[2021-03-28] MEDS: PSYLLIUM HUSK 100% 6 GM PACKET PO SCH (07:48)
[2021-03-28] MEDS: LISINOPRIL-HCTZ 20-12.5 MG 1 EACH TAB PO SCH (07:48)
[2021-03-28] MEDS: ALBUTEROL HFA INHALER INHALATION SCH ×2 (08:43→12:00)
[2021-03-28 10:28] VITALS: BP 103/65; PULSE 88; TEMP 97.9
--- NOTE | 2021-03-28 16:38 | P.DS ---
Providers Date of admission: 03/19/21 16:39 Expected date of discharge: 03/28/21 Attending physician: Josias Pal Consults: 03/19/21 16:33 Consult Physician Routine Consulting Provider: Warren Juarez Consult Reason/Comments: covid pneumonia, with possible peripheral PE Do you want consulting provider notified?: Yes Primary care physician: Lizandro Fajardo [facility] Course: Chief Complaint: Not feeling well History of presenting complaint: This is a pleasant 45-year-old patient of Dr. Fajardo. Chronic stable medical conditions include hypertension, ALLERGIES, depression. Patient was diagnosed with COVID 19 on February 28. 2 days prior to this patient with having different symptoms. Currently patient presented to the ER with increasing shortness of b reath diarrhea. No body ache or headache. Decreased appetite. Patient had some loss of smell and taste that has been coming back. Currently no fever and chills. Initial pulse ox on presentation was 91% on room air. Patient is placed on oxygen. Given IV dexamethasone. Admitted with bilateral COVID 19 pneumonia, relative hypoxia. Started on oxygen supplementation, dexamethasone. Patient gradually did improve . Today,: Sitting upon a chair. Oral intake fair. 91% on 3 L. Patient cleared for discharge by pulmonary/Dr. Moctezuma. Care was discussed at length with the patient. Including to use incentive spirometry. To remain active as tolerated. Told to return to the hospital. If pulmonary status is to worsen. Home oxygen arranged. Patient be discharged home on a tapering dose of steroids Discussion and discharge planning more than 35 minutes Consultation: Dr. Moctezuma and partners from pulmonary Past medical history to include: Hypertension, ALLERGIES, depression Social history: Patient is in his grandfather. Normally does [employer]. Does not smoke or drink alcohol Family history: Reviewed, noncontributory to presentation Physical examination: VITAL SIGNS: 97.9, 88, 18, 103/65, 91% on 3 L GENERAL: Sitting up in a chair, awake PULMONARY: Respiratory effort increased PSYCH: Alert and oriented x3; mood and affect slightly tired. NEUROLOGICAL: Cranial nerves grossly intact; no facial asymmetry, moving all 4 limbs Rest of the exam per nursing and pulmonary INVESTIGATIONS, reviewed in the clinical context: March 5: D-dimer 0.64 March 2: WBC 7.7 d-dimer 1 CRP 0.7 March 1: D-dimer 1.01 CRP 0.8 WBC 5.9 hemoglobin 11.5 platelets 300 lymphocyte 0.7 d-dimer 1.61 Potassium 3.9 creatinine 0.93 LDH 802 CRP 1.1 pro-calcitonin 0.12 EKG tracing personally reviewed by me-normal sinus rhythm, heart rate 126 Chest CTA: Partial occlusive small subsegmental acute embolism right lower lobe Chest x-ray film personally reviewed by me-bilateral infiltrates Assessment and plan: -Bilateral COVID 19 pneumonia. Patient was diagnosed on February 28. Symptoms is started well before that.-Improving IV dexamethasone, vitamin C, vitamin D, Pepcid, zinc. Subcu Lovenox. DC home on tapering dose of steroids -Related hypoxia secondary to COVID 19 pneumonia. Was 90% on 2 L. currently 91% on 3 L -Acute gastroenteritis secondary to COVID- much better Symptomatic treatment -Essential hypertension Continue Zestoretic -Chronic ALLERGIES Continue with Singulair -Depression otherwise specified Continue with Trintellix Disposition: Home Additional CC's: Lizandro Fajardo Patient Condition at Discharge: Stable Plan - Discharge Summary Discharge Rx Participant: No New Discharge Prescriptions: New Zinc Sulfate [Orazinc] 220 mg PO DAILY #30 cap Famotidine [Pepcid] 20 mg PO BID #60 tab Apixaban [Eliquis Starter Pack (for VTE)] 0 mg PO DIRECTED 30 Days #1 pack predniSONE 10 mg PO DAILY #30 tab Albuterol Inhaler [Ventolin Hfa Inhaler] 2 puff INHALATION RT-QID #1 puff Ascorbic Acid [Vitamin C] 1,000 mg PO DAILY #30 tab Cholecalciferol [Vitamin D3 (25 Mcg = 1000 Iu)] 100 mcg PO DAILY #120 tablet Continue Lisinopril-Hctz 20-12.5 mg [Zestoretic 20-12.5] 1 tab PO DAILY Latanoprost [Xalatan 0.005%] 1 drop RIGHT EYE HS Dorzolamide-Timol 2.23%/0.68% [Cosopt] 1 drop RIGHT EYE BID Brimonidine Tartrate [Alphagan P 0.15% Ophth Soln] 1 drops RIGHT EYE BID Montelukast [Singulair] 10 mg PO DAILY Vortioxetine Hydrobromide [Trintellix] 10 mg PO DAILY Discharge Medication List Brimonidine Tartrate [Alphagan P 0.15% Ophth Soln] 1 drops RIGHT EYE BID 03/19/21 [History] Dorzolamide-Timol 2.23%/0.68% [Cosopt] 1 drop RIGHT EYE BID 03/19/21 [History] Latanoprost [Xalatan 0.005%] 1 drop RIGHT EYE HS 03/19/21 [History] Lisinopril-Hctz 20-12.5 mg [Zestoretic 20-12.5] 1 tab PO DAILY 03/19/21 [History] Montelukast [Singulair] 10 mg PO DAILY 03/19/21 [History] Vortioxetine Hydrobromide [Trintellix] 10 mg PO DAILY 03/19/21 [History] Apixaban [Eliquis Starter Pack (for VTE)] 0 mg PO DIRECTED 30 Days #1 pack 03/20/21 [Rx] Albuterol Inhaler [Ventolin Hfa Inhaler] 2 puff INHALATION RT-QID #1 puff 03/28/21 [Rx] Ascorbic Acid [Vitamin C] 1,000 mg PO DAILY #30 tab 03/28/21 [Rx] Cholecalciferol [Vitamin D3 (25 Mcg = 1000 Iu)] 100 mcg PO DAILY #120 tablet 03/28/21 [Rx] Famotidine [Pepcid] 20 mg PO BID #60 tab 03/28/21 [Rx] Zinc Sulfate [Orazinc] 220 mg PO DAILY #30 cap 03/28/21 [Rx] predniSONE 10 mg PO DAILY #30 tab 03/28/21 [Rx] Follow up Appointment(s)/Referral(s): [facility] [NON-STAFF] - As Needed (oxygen ) Lizandro Fajardo MD [Primary Care Provider] - 04/02/21 12:30 pm (Tele will be a Tele health visit. Will call at time listed) Warren Juarez DO [Doctor of Osteopathic Medicine] - 04/23/21 2:45 pm (with Vee Haider) Discharge Disposition: HOME SELF-CARE
--- NOTE | 2021-03-28 16:40 | P.PN ---
Subjective Progress Note Date: 03/28/21 Principal diagnosis: COVID-19 pneumonia, pulmonary embolism This is a 45-year-old white male patient who was diagnosed with COVID-19 on 02/28/2021 when he was seen at [facility] emergency department. We don't have the records from that visit, but patient states he was just given IV fluids in the emergency department, and an inhaler, and was discharged home, he does not think there was pneumonia on the chest x-ray found on that visit. Patient presented to the emergency department on 03/19/2021 with persistent shortness of breath, which she states has not changed over worsened however has not improved. He denied any chest pain or hemoptysis, no leg swelling, no calf tenderness. He denied any nausea or vomiting, he did have diarrhea, he does have a slight cough occasionally. Not usually oxygen dependent at baseline, in the emergency department she was tachypneic and saturating at 88-89% on room air. Chest x-ray showed low lung volumes with left greater than right multifocal and confluent increased reticular opacities bilaterally consistent with history of COVID-19 pneumonia. His labs show lymphopenia, normal white count of 7.1, hemoglobin was 14.1, his d-dimer was elevated at 1.61, his electrolytes and renal profile were unremarkable, plasma lactic acid was 1.1, ferritin level was 675, ALT was 117, LDH was 802, troponin was less than 0.012, CRP was 1.1, pro calcitonin level was negative at 0.12, CTA chest was completed and this was a suboptimal study but no central or clinically significant pulmonary embolism was noted, there was a suggestion of partially occlusive small subsegmental acute embolism in the right lower lobe. There were corresponding to x-ray low lung volumes with multifocal and confluent areas of groundglass opacities. Patient was started on heparin infusion, and Decadron. On 03/21/2021 patient seen in follow-up on medical surgical floor, he looks much more comfortable today, breathing comfortably, in no distress, he remains on 5 L of supplemental oxygen his pulse ox is around 90%, he remains on IV Decadron, we started him on oral anticoagulation and form of Eliquis yesterday, heparin drip has been discontinued, no worsening dyspnea, no worsening hypoxia no chest pain or hemoptysis. Vital signs are stable, blood pressure stable, patient is afebrile. No acute events overnight On 03/22/2021 patient seen in follow-up on medical surgical floor, he is feeling better, still has a cough, and gets exertional dyspnea, but overall is feeling much more comfortably, he is currently on 4 L of oxygen his pulse ox between 92- 93%, was started on Eliquis, heparin drip was discontinued. His vitals have been stable, no headaches, no fever or chills. His appetite has been fair. No complaints of chest discomfort or hemoptysis On 03/23/2021 patient seen in follow-up on medical surgical floor, he states his breathing is about the same, still coughs, still takes shallow fast breaths. No complaints of chest discomfort, his been afebrile, he does get short of breath with activity. She remains on Decadron 6 mg daily, he remains on oral Eliquis. No chest discomfort and no hemoptysis. He was instructed on the use of incentive spirometer, today's labs have been reviewed, his d-dimer is 1 on toda y's labs, white blood cell count is normal at 7.7, hemoglobin is 12.2, sodium is 136, dressing electrolytes and renal profile are within normal limits On 03/24/2021 patient seen in follow-up on medical surgical floor. No acute distress, although he states he is feeling very fatigued and weak, but no worsening dyspnea, signs have been stable, no fever or chills. No acute events overnight, no complaints of chest discomfort. Does become short of breath with exertion, his been spending a lot of time in bed. No nausea vomiting or diarrhea. He remains on Decadron 6 mg daily, and he is on Eliquis for right lower lobe subsegmental pulmonary embolism. No hemoptysis, no chest pain On 03/25/2021 patient seen in follow-up on medical surgical floor, he sitting up in chair, currently down to 2 L of oxygen, breathing comfortably, his sat is 94%, vital signs are stable, no chest pain, his cough has much improved since admission, no fever or chills, blood pressures have been stable. He continues on Eliquis for pulmonary embolisms, and he continues on IV Decadron 6 mg daily, has had no acute events overnight. No nausea vomiting or diarrhea, tolerating oral intake. Today's labs have been reviewed, his d-dimer is down to 1, his white blood cell count is 7.7, hemoglobin is 12.2, electrodes and renal profile were unremarkable. On 03/27/2021 patient seen in follow-up, history of and 2 L of oxygen, he sitting up in the chair, breathing comfortably, has had no acute events overnight, she was ambulated on room air, and he did desaturate to 88% on room air with ambulation in as such qualifies for home oxygen, his had no worsening in his dyspnea, he still has a cough, which is nonproductive, no chest discomfort, altered mentation, no fever or chills, his vital signs have been stable, no acute events overnight. Blood pressure has been stable, follow-up chest x-ray today shows persistent low lung volumes and mid to lower lungs left greater than right multifocal opacities with possibly some improvement in his right lung findings. No new labs, patient remains on Eliquis for pulmonary embolisms. He is on oral Decadron 6 mg daily. On 03/28/2031 patient seen in follow-up on medical surgical floor, he remains on 2 L of oxygen, he is breathing comfortably, overall he states his breathing is stable, with no worsening, his cough is improving, no acute events overnight, no complaints of chest pain, no hemoptysis. His vital signs have been stable, he has been switched to oral anticoagulation no form of Eliquis a few days ago, and he remains on oral Decadron. His been ambulating in the singh, home oxygen assessment revealed the patient does qualify for home oxygen as he does d esaturate with ambulation, he has been stable, with no worsening of his dyspnea or hypoxia, and patient is being discharged home today. Objective - Vital Signs Vital signs: Vital Signs Temp 97.9 F 03/28/21 10:00 Pulse 88 03/28/21 10:00 Resp 18 03/28/21 10:00 BP 103/65 03/28/21 10:00 Pulse Ox 91 L 03/28/21 10:00 Intake & Output 03/27/21 03/28/21 03/28/21 18:59 06:59 18:59 Other: Voiding Method Toilet Toilet Toilet # Voids 2 1 - Exam GENERAL EXAM: Alert, very pleasant, 45-year-old white male, on 2 L of oxygen and pulse ox of 90%, comfortable in no apparent distress. HEAD: Normocephalic/atraumatic. EYES: Normal reaction of pupils, equal size. Conjunctiva pink, sclera white. NOSE: Clear with pink turbinates. THROAT: No erythema or exudates. NECK: No masses, no JVD, no thyroid enlargement, no adenopathy. CHEST: No chest wall deformity. Symmetrical expansion. LUNGS: Equal air entry with diffuse bibasilar crackles CVS: Regular rate and rhythm, normal S1 and S2, no gallops, no murmurs, no rubs ABDOMEN: Soft, nontender. No hepatosplenomegaly, normal bowel sounds, no guarding or rigidity. EXTREMITIES: No clubbing, no edema, no cyanosis, 2+ pulses and upper and lower extremities. MUSCULOSKELETAL: Muscle strength and tone normal. SPINE: No scoliosis or deformity SKIN: No rashes CENTRAL NERVOUS SYSTEM: Alert and oriented -3. No focal deficits, tone is normal in all 4 extremities. PSYCHIATRIC: Alert and oriented -3. Appropriate affect. Intact judgment and insight. - Labs CBC & Chem 7: 03/23/21 07:12 03/23/21 07:12 Assessment and Plan Plan: Assessment: #1. Acute hypoxic respiratory failure related to acute COVID-19 pneumonia, first diagnosed on 02/28/2021 at [facility]. Patient is outside the window for Remdesivir #2. Small subsegmental right lower lobe pulmonary embolism #3. History of depression #4. Possible history of chronic bronchial asthma, mild intermittent #5. Lifetime nonsmoker #6. History of hypertension Plan: Patient has been stable overnight, No worsening dyspnea or hypoxia Patient qualified for home oxygen, Will be going home on 2 L Continue Eliquis Patient can finish outpatient course of oral Decadron for a total 10 days Follow-up with Dr. Moctezuma in the office in 2 weeks I performed a history & physical examination of the patient and discussed their management with my nurse practitioner, Jaz Saeed. I reviewed the nurse practitioner's note and agree with the documented findings and plan of care. Lung sounds are positive for diffuse crackles. The findings and the impression was discussed with the patient. I attest to the documentation by the nurse practitioner. Time with Patient: Less than 30
== END 2021-03-28 13:50 | disposition home or self-care (01) | DRG 177 ==
LOC: EC 12:52 → 4SSUR 16:39
PROVIDERS: ADMIT Hospitalist; ATTEND Hospitalist
DX: U07.1 COVID-19 (principal); I26.93 Single subsegmental thrombotic pulmonary embolism without acute cor pulmonale; J12.82 Pneumonia due to coronavirus disease 2019; J96.01 Acute respiratory failure with hypoxia; A08.39 Other viral enteritis; J45.20 Mild intermittent asthma, uncomplicated; I10 Essential (primary) hypertension; F32.9 Major depressive disorder, single episode, unspecified; Z79.899 Other long term (current) drug therapy; Z90.89 Acquired absence of other organs; Z98.890 Other specified postprocedural states
CPT/HCPCS: 36415; 71045; 71275; 80048; 80053; 82728; 83605; 83615; 83735; 83880; 84145; 84484; 85025; 85379; 85610; 85730; 86140; 87040; 93005; 94640; 96365; 96366; 99285

== ENCOUNTER → 2021-09-16 | Outpatient (CLI) | payer OTHER | LOC: CPPFTMAIN 11:45 | PROVIDERS: ATTEND Family Medicine | DX: R06.00 Dyspnea, unspecified (principal) | CPT/HCPCS: 94060; 94726; 94729 ==

== ENCOUNTER → 2022-04-23 | Outpatient (CLI) | payer OTHER | END | disposition home or self-care (01) | LOC: LABWHC1 12:03 | PROVIDERS: ATTEND Family Medicine | DX: R82.5 Elevated urine levels of drugs, medicaments and biological substances (principal) | CPT/HCPCS: 36415; 83835 ==

== ENCOUNTER → 2022-05-11 | Outpatient (CLI) | payer OTHER ==
--- NOTE | 2022-05-11 16:54 | MR ---
MR abdomen with and without contrast HISTORY: R 82.5 Multiplanar multisequence and postcontrast images obtained through the abdomen following [address] IV. Correlation to CT scan of the abdomen dated 10/14/2018, CT chest 03/19/2021 There is some motion on exam, exam somewhat limited technically. Lung bases show no pleural or pericardial effusion. Aorta shows normal caliber. The liver is not enla rged, there is no evident mass or dilated intra or extrahepatic biliary duct. There is some drop of s ignal on out of phase imaging suggesting possible hepatic steatosis. Gallbladder is within normal steel its. The pancreas is unremarkable. Spleen shows no interval change. The kidneys and adrenal glands are normal. There is no abnormal enhancement. No retroperitoneal adeno eugenie or ascites. Left-sided inferior vena cava is present to the level of the renal veins. impression: No evident adrenal mass.
== END | disposition home or self-care (01) ==
LOC: RADMRIMAIN 05:45
PROVIDERS: ATTEND Family Medicine
DX: R82.5 Elevated urine levels of drugs, medicaments and biological substances (principal)
CPT/HCPCS: 74183; A9585

== ENCOUNTER → 2022-05-12 | Outpatient (CLI) | payer OTHER ==
--- NOTE | 2022-05-12 10:40 | MR ---
MR neck with and without contrast HISTORY: D 49.89 Multiplanar multisequence and postcontrast images obtained following 10 cc Gadavist IV. No comparisons. Overlying marker placed at the site of patient's symptomatology in the left neck An circumscribed mass measuring 4.4 cm in cephalad to caudal dimension by 2.2 cm in AP dimension by 2 .9 cm in transverse dimension is present along the prevertebral soft tissues extending from the level of anterior aspect of C1 inferiorly in the suprahyoid neck to caudally approximately level C2-3. The re is predominantly signal within the mass which follows fat on all pulse sequences although there is some stranding of intermediate to low signal soft tissue present. Lesion is present on the left of m idline. There is mass effect on the uvula displacing it anteriorly and slightly toward the right, ins inuation within the longus collie muscle on the left at its cephalad extent. Some mass effect noted o n the airway the axial plane. There does not appear to be significant enhancement. There is no evident adenopathy. IMPRESSION: Favor lipoma, consider CT with contrast through the neck for further characterization, EN T consult.
== END | disposition home or self-care (01) ==
LOC: RADMRIMAIN 08:13
PROVIDERS: ATTEND Family Medicine
DX: D49.89 Neoplasm of unspecified behavior of other specified sites (principal)
CPT/HCPCS: 70543; A9585

== ENCOUNTER → 2023-03-05 | Outpatient (CLI) | payer OTHER ==
--- NOTE | 2023-03-05 13:05 | FL ---
EXAMINATION TYPE: FL barium swallow DATE OF EXAM: 03/05/2023 12:48 PM COMPARISON: MR neck 05/12/2022, CT chest 03/11/2021 CLINICAL INDICATION:Male, 47 years old with history of R10.13 EPIGASTRIC PAIN; PHH, TECHNIQUE: The procedure was explained and patient history elicited. All patient questions were ans wered prior to start of procedure. Multiple spot fluoroscopic images of the esophagus were obtained a fter the oral ingestion of effervescent crystals and liquid barium as the contrast agent. Fluoroscopic time: 21 seconds Fluoroscopic images: 0 Radiographs taken: 106 DAP: 70428.15 FINDINGS: The esophagus demonstrates normal primary and secondary peristalsis. The esophageal mucosa is smooth without evidence of focal stricture, ulceration, or abnormal outpouching. No gastroesophageal reflu x disease was identified. IMPRESSION: 1. Normal esophagram.
== END | disposition home or self-care (01) ==
LOC: RADUSWWP 11:11
PROVIDERS: ATTEND Family Medicine
DX: R10.13 Epigastric pain (principal)
CPT/HCPCS: 74220

== ENCOUNTER → 2024-08-25 | Outpatient (CLI) | payer OTHER ==
--- NOTE | 2024-08-25 16:52 | US ---
EXAMINATION TYPE: US kidneys/renal and bladder DATE OF EXAM: 08/25/2024 COMPARISON: Liver US 02/16/2018 CLINICAL INDICATION: Male, 49 years old with history of R94.4 ABNORMAL RESULTS OF KIDNEY FUNCTION [place] DIES; Left flank pain x few months, urinary frequency without void. TECHNIQUE: Grayscale and color Doppler imaging of the bilateral kidneys and urinary bladder: EXAM MEASUREMENTS: Right Kidney: 11.3 x 6.3 x 5.7 cm Left Kidney: 10.9 x 5.9 x 5.3 cm Post Void Residual Volume: NA mL Right Kidney: WNL Left Kidney: WNL Bladder: WNL Bilateral Jets seen: Yes Normal Post Void Residual: NA IMPRESSION: 1. Unremarkable renal ultrasound [facility] Arnulfo Berrios, Workstation: [facility], 08/25/2024 4:50 PM
== END | disposition home or self-care (01) ==
LOC: RADUSWWP 06:51
PROVIDERS: ATTEND Family Medicine
DX: R94.4 Abnormal results of kidney function studies
CPT/HCPCS: 76770

== ENCOUNTER → 2024-09-08 | Outpatient (CLI) | payer OTHER ==
--- NOTE | 2024-09-08 08:51 | US ---
EXAMINATION TYPE: US abdomen complete DATE OF EXAM: 09/08/2024 COMPARISON: CLINICAL INDICATION: Male, 49 years old with history of R10.31 RIGHT LOWER QUADRANT PAIN; Left side p ain per patient. TECHNIQUE: Grayscale and color Doppler imaging of the abdomen was performed. FINDINGS: EXAM MEASUREMENTS: Liver Length: 15.2 cm Gallbladder Wall: 0.2 cm Spleen: 8.8 cm Right Kidney: 10.3 x 5.6 x 5.4 cm Left Kidney: 9.4 x 5.4 x 5.8 cm [facility] NOTES: limited due to bowel gas Pancreas: Obscured by bowel gas Liver: Scanned through ribs, no prominent masses or lesions seen Gallbladder: No stones or wall thickening Evidence for sonographic Worley's sign: neg CBD: Obscured by overlying bowel gas Spleen: wnl Right Kidney: No hydronephrosis or masses seen Left Kidney: Lower lateral hypoechoic lesion = 0.6 x 0.5 x 0.4 cm Upper IVC: wnl Abd Aorta: Obscured by overlying bowel gas The liver is homogenous. The intrahepatic portion of the IVC and proximal abdominal aorta are within normal limits. There is no evidence of cholelithiasis. Common bile duct is unremarkable. The visu alized portions of the pancreas are homogenous. The spleen is unremarkable. Kidneys are symmetric a nd free of hydronephrosis. No renal lesions are seen. IMPRESSION: 1. No evidence for acute process. 2. Left renal probable cyst not seen on prior CT 10/14/2018. [facility], , 09/08/2024 8:49 AM
== END | disposition home or self-care (01) ==
LOC: RADUSWWP 07:56
PROVIDERS: ATTEND Family Medicine
DX: R10.31 Right lower quadrant pain (principal)
CPT/HCPCS: 76700

== ENCOUNTER 2024-11-07 10:20 | Day surgery (SDC) | payer OTHER ==
[2024-11-06 14:13] VITALS: BMI 30.5
[2024-11-07] MEDS ORDERED: LACTATED RINGERS 1,000 ML IV SCH (11:08)
[2024-11-07] MEDS ORDERED: LIDOCAINE 1% (10MG/ML) FOR IV START INTRADERMA PRN (11:08)
[2024-11-07 11:15] VITALS: RESP 16; TEMP 97.6
[2024-11-07] MEDS: IV FLUID CONTINUATION 1,000 ML IV ONE (11:49)
[2024-11-07] MEDS ORDERED: PROPOFOL 10 MG/ML 20 ML VIAL IV ONE (11:54)
--- NOTE | 2024-11-07 12:08 | P.PCN ---
Date of Procedure: 11/07/24 Procedure(s) Performed: BRIEF HISTORY: Patient is a 57-year-old pleasant white male scheduled for an elective colonoscopy as a part of screening for colon cancer. PROCEDURE PERFORMED: Colonoscopy with biopsy. PREOPERATIVE DIAGNOSIS: Screening for colon cancer. IV sedation per Anesthesia. PROCEDURE: After informed consent was obtained, the patient, was brought into the endoscopy unit. IV sedation was administered by Anesthesia under continuous monitoring. Digital rectal examination was normal. Initially the Olympus CF-160 flexible video colonoscope was then inserted in the rectum, gradually advanced into the cecum without any difficulty. Careful examination was performed as the scope was gradually being withdrawn. Ileocecal valve and the appendiceal orifice were visualized and appeared normal. Prep was excellent. Mucosa of the cecum, ascending colon, transverse colon, descending colon, normal. The sigmoid colon there was a 3 mm sessile polyp in by cold biopsy. Rest of the sigmoid colon, and rectum appeared normal. Retroflexion was performed in the rectum and no lesions were seen. The patient tolerated the procedure well. IMPRESSION: 3 mm sigmoid colon polyp status post cold biopsy Rest of the colon appeared normal RECOMMENDATIONS: Findings of this examination were discussed with the patient as well as her family. He was advised to follow the biopsy results and have repeat colonoscopy in 10 years.
[2024-11-07 12:28] VITALS: BP 111/67; PULSE 64
== END 2024-11-07 12:49 | disposition home or self-care (01) ==
LOC: ORWHC2ENDO 10:20
PROVIDERS: ATTEND Internal Medicine Gastroenterology
DX: Z12.11 Encounter for screening for malignant neoplasm of colon (principal); K63.5 Polyp of colon; I10 Essential (primary) hypertension; G47.33 Obstructive sleep apnea (adult) (pediatric); F32.A Depression, unspecified; F17.210 Nicotine dependence, cigarettes, uncomplicated; Z99.89 Dependence on other enabling machines and devices; Z79.899 Other long term (current) drug therapy
CPT/HCPCS: 88305; 45380; J2704